=== PATIENT | male | born 1945 | race Caucasian/White ===

== ENCOUNTER 2016-06-17 18:10 | Emergency (ER) | payer MEDICARE, OTHER ==
[2016-06-17] MEDS ORDERED: Ondansetron INJ* 2 MG/ML VIAL IV ONE (19:28)
[2016-06-17] MEDS ORDERED: Morphine INJ* 4 MG/ML 1 ML SYRINGE IV ONE ×2 (19:28→21:44)
[2016-06-17] MEDS ORDERED: NS 0.9% 250 ML* 250 ML IV SCH (20:00)
[2016-06-17 20:14] LABS: Hematocrit 48 % (42-52); Hemoglobin 16.6 g/dl (14.0-18.0); Mean Corpuscular HGB Conc 34 g/dl (31-36); Mean Corpuscular Hemoglobin 32 pg (27-31); Mean Corpuscular Volume 92 fL (80-94); Mean Platelet Volume 8 um3 (7.4-10.4); Red Blood Count 5.24 10^6/ul (4.0-5.4); Red Cell Distribution Width 14 % (10.5-15); White Blood Count 10.1 10^3/ul (3.5-10.8)
[2016-06-17 20:29] LABS: Albumin 4.6 g/dL (3.2-5.2); BUN/Creatinine Ratio 12.2 (8-20); Calcium 10.1 mg/dL (8.6-10.3); EGFR African American 81.1 (>60); EGFR Non-African American 63.1 (>60); Globulin 3.8 g/dL (2-4); Potassium 3.5 mmol/L (3.5-5.0); Total Bilirubin 0.7 mg/dL (0.2-1.0); Total Protein 8.4 g/dL (6.4-8.9)
[2016-06-17] MEDS ORDERED: Iodixanol* (CONTRAST) 320 MG/ML 100 ML SDV IV ONE (20:40)
[2016-06-17 20:57] LABS: Erythrocyte Sed Rate 17 mm/Hr (0-40)
--- NOTE | 2016-06-17 21:09 | RAD ---
INDICATION: Status post chiropractic manipulation 06/15. History of migraine headaches. COMPARISON: CT brain September 28, 2015 TECHNIQUE: Noncontrast axial source images were acquired from the skull base to the vertex. FINDINGS: Ventricles/sulci: The ventricles and cisterns are normal in size and configuration for age. Brain parenchyma: There is no acute focal parenchymal finding, evidence of intracranial mass, or intracranial mass effect. There is an old lacunar type infarct in the left caudate nucleus, unchanged. Intracranial hemorrhage:None. Extra-axial spaces: There are no abnormal extra axial fluid collections or evidence of extra-axial mass. Calvarium: There is no calvarial fracture or other calvarial abnormality. Scalp: There is no evidence of scalp or extracalvarial soft tissue abnormality. Paranasal sinuses/mastoid: The paranasal sinuses and mastoid air cells are clear. Other: None. IMPRESSION: No acute intracranial findings
--- NOTE | 2016-06-17 21:22 | RAD ---
INDICATION: Neck pain. Status post manipulation by a chiropractor 06/15. History of migraines. COMPARISON: CT brain September 28, 2015; CT brain June 17, 2016; CTA head and neck September 28, 2015; MRI brain September 29, 2015 TECHNIQUE: Axial source images were acquired with coronal and sagittal reconstructions. CT angiographic technique was utilized with injection of 80 mL Visipaque 320. FINDINGS: Aortic arch: There are no acute CT angiogram abnormalities of the arch or the great vessels arising from the arch. There is uncoiling of the thoracic aorta with the great vessels are tortuous and ectatic. Right carotid: The internal carotid artery, carotid bifurcation, extracranial portions of the internal carotid artery, carotid artery at the skull base, carotid siphon, and carotid termination appear widely patent. There are mild atherosclerotic changes at the carotid bifurcation. Left carotid:The internal carotid artery, carotid bifurcation, extracranial portions of the internal carotid artery, carotid artery at the skull base, carotid siphon, and carotid termination appear widely patent. There are mild atherosclerotic changes the rounded bifurcation. Right middle and anterior cerebral arteries: There are no CT angiographic abnormalities of the middle or anterior cerebral arteries. Left middle and anterior cerebral arteries: There are no CT angiographic abnormalities of the middle or anterior cerebral arteries Right vertebral: The CT angiographic appearance of the vertebral artery is normal. Left vertebral: The CT angiographic appearance of the vertebral artery is normal. Basilar artery: The basilar artery and basilar tip appear normal. Posterior cerebral arteries: The distal distribution of the right and left posterior cerebral arteries is normal. [place]: The CT angiographic appearance of the [place] is normal. Source images show no evidence of mass or adenopathy within the neck. There are no focal parenchymal abnormalities or abnormal areas of enhancement. There are no acute bony findings. IMPRESSION: NO CT EVIDENCE OF SIGNIFICANT STENOSIS, DISSECTION, ANEURYSM, OR BRANCH OCCLUSION. NO INTERVAL CHANGE. CPT II Codes: 3100F PQRS
[2016-06-17] MEDS ORDERED: Metoclopramide IV* 5 MG/ML 2 ML VIAL IV ONE (21:45)
[2016-06-17] MEDS ORDERED: Ketorolac INJ* 15 MG/ML 1 ML VIAL IV PUSH ONE (23:15)
[2016-06-18] MEDS ORDERED: HYDROcodone/ACETAMIN 5-325 MG* 1 TAB PO ONE (00:30)
[2016-06-18 02:04] VITALS: BP 144/86
--- NOTE | 2016-06-18 07:55 | RAD ---
HISTORY: Headache, migraine, fever COMPARISONS: September 28, 2015 VIEWS: 2: Frontal dual-energy and lateral views of the chest. FINDINGS: CARDIOMEDIASTINAL SILHOUETTE: The cardiomediastinal silhouette is normal. SOCO: The soco are normal. PLEURA: The costophrenic angles are sharp. No pleural abnormalities are noted. LUNG PARENCHYMA: There is hyperinflation with flattening of the diaphragm and expansion of the AP diameter of the chest. ABDOMEN: The upper abdomen is clear. There is no subphrenic gas. BONES AND SOFT TISSUES: There is diffuse osteopenia. Degenerative changes are noted along the spine OTHER: None. IMPRESSION: HYPERINFLATION, CONSISTENT WITH COPD. NO ACTIVE CARDIOPULMONARY DISEASE.
--- NOTE | 2016-06-23 22:03 | ED ---
Edwin, DoctorNasrin, scribed for Myra Loco MD on 06/17/16 at 1916 . Headache - HPI Summary HPI Summary: 70 year old male arrived to [facility] c/o headache, neck pain, nausea, and vomiting beginning two days ago. He describes the BLAS as starting in the middle of the forehead, and shooting to the right or left side of the head; he rates his pain as fluctuating between a 7/10 and 10/10. He also is experiencing photophobia. His pain began two nights ago, a few hours after visiting the chiropractor. He has been taking regular migraine medication (Butalbital) and OTC meds for nausea , but his symptoms have not alleviated. He has a PMHx of migraines, although his current pain is more severe and more persistent than previous episodes. He additionally has a PMHx of TIA. He regularly sees Dr. Dayton Stovall ([facility] ) who recommended pt come to ED. - History Of Current Complaint Chief Complaint: EDHeadache Stated Complaint: MIGRAINE Time Seen by Provider: 06/17/16 19:10 Hx Obtained From: Patient Onset/Duration: Gradual Onset, Started days ago Initially Headache Was: Moderate Currently Pain Is: Current Pain Scale(0-10)= - 8/10 Timing: Constant Character: Dull Location of Headache: Frontal Aggravating Factor: Bright Lights Allevating Factors: Nothing Associated Signs And Symptoms: Nausea, Vomiting, Neck Pain - Risk Factors SAH Risk Factors: Negative Meningitis Risk Factors: Negative SDH Risk Factors: Male Temporal Arteritis Risk Factors: Greater Than 60 Years Old - Allergies/Home Medications Allergies/Adverse Reactions: Allergies Allergy/AdvReac Type Severity Reaction Status Date / Time Atorvastatin Allergy Unknown Verified 06/17/16 18:45 Reaction Details Codeine Allergy See Comment Verified 06/17/16 18:45 Lisinopril Allergy Unknown Verified 06/17/16 18:45 Reaction Details Sucralfate [From Carafate] Allergy Unknown Verified 06/17/16 18:45 Reaction Details PMH/Surg Hx/FS Hx/Imm Hx Previously Healthy: No Endocrine/Hematology History: Reports: Hx Diabetes - type II Cardiovascular History: Reports: Hx Hypercholesterolemia, Hx Hypertension Denies: Hx Pacemaker/ICD Sensory History: Reports: Hx Contacts or Glasses, Hx Hearing Aid, Hx Hearing Problem Opthamlomology History: Reports: Hx Contacts or Glasses Neurological History: Reports: Hx Migraine Psychiatric History: Denies: Hx Panic Disorder - Cancer History Cancer Type, Location and Year: Skin cancer - Surgical History Surgery Procedure, Year, and Place: Bilateral trigger finger surgery. bilateral cateract surgery. skin cancer removal x2 Infectious Disease History: No Infectious Disease History: Denies: Traveled Outside the [place] in Last 30 Days - Family History Known Family History: Positive: Hypertension - Social History Occupation: Retired Lives: With Family Alcohol Use: Occasionally Alcohol Amount: 3 drinks per week Substance Use Type: Reports: None Smoking Status (MU): Former Smoker Review of Systems Negative: Fever Positive: Photophobia Cardiovascular: Negative Respiratory: Negative Positive: Vomiting, Nausea Positive: Headache Psychological: Normal All Other Systems Reviewed And Are Negative: Yes Physical Exam Triage Information Reviewed: Yes Vital Signs On Initial Exam: Initial Vitals Temp Pulse Resp BP Pulse Ox 99.1 F 82 16 145/81 99 06/17/16 18:12 06/17/16 18:12 06/17/16 18:12 06/17/16 18:12 06/17/16 18:12 Vital Signs Reviewed: Yes Appearance: Positive: Well-Appearing, Well-Nourished, Pain Distress Skin: Positive: Warm, Skin Color Reflects Adequate Perfusion, Dry Eyes: Positive: EOMI, PAULA, Conjunctiva Clear, Other: - fundi discs sharp and flat, no hemorrhage ENT: Positive: Normal ENT inspection Neck: Positive: Supple, Other: - pain at posterior cervical spine, radiates to the right trapezius Respiratory/Lung Sounds: Positive: Clear to Auscultation, Breath Sounds Present. Negative: Rales, Rhonchi, Wheezes Cardiovascular: Positive: RRR, Pulses are Symmetrical in both Upper and Lower Extremities. Negative: Murmur, Rub Abdomen Description: Positive: Nontender, No Organomegaly, Soft. Negative: Distended, Guarding, Hepatomegaly, Peritoneal Signs, Pulsatile Mass, Splenomegaly Bowel Sounds: Positive: Present Musculoskeletal: Positive: Strength/ROM Intact Neurological: Positive: Sensory/Motor Intact, Alert, Oriented to Person Place, Time, CN Intact II-III, Normal Gait, Other - Motor function 5/5, Sensations intact. Negative: Facial Droop, Focal Deficit @, Slurred Speech Psychiatric: Positive: Normal - Princess Coma Scale Coma Scale Total: 15 Diagnostics - Vital Signs Vital Signs Temp Pulse Resp BP Pulse Ox 06/17/16 18:44 65 98 06/17/16 18:42 164/88 06/17/16 18:41 98.8 F 64 18 164/88 98 06/17/16 18:12 99.1 F 82 16 145/81 99 - Laboratory Lab Results: Lab Results 06/17/16 06/17/16 06/17/16 Range/Units 20:00 20:00 20:00 WBC 10.1 (3.5-10.8) 10^3/ul RBC 5.24 (4.0-5.4) 10^6/ul Hgb 16.6 (14.0-18.0) g/dl Hct 48 (42-52) % MCV 92 (80-94) fL MCH 32 H (27-31) pg MCHC 34 (31-36) g/dl RDW 14 (10.5-15) % Plt Count 199 (150-450) 10^3/ul MPV 8 (7.4-10.4) um3 Neut % (Auto) 69.2 (38-83) % Lymph % (Auto) 20.8 L (25-47) % Upton % (Auto) 9.1 H (1-9) % Eos % (Auto) 0.4 (0-6) % Baso % (Auto) 0.5 (0-2) % Absolute Neuts (auto) 7.0 (1.5-7.7) 10^3/ul Absolute Lymphs (auto) 2.1 (1.0-4.8) 10^3/ul Absolute Monos (auto) 0.9 H (0-0.8) 10^3/ul Absolute Eos (auto) 0 (0-0.6) 10^3/ul Absolute Basos (auto) 0.1 (0-0.2) 10^3/ul Absolute Nucleated RBC 0 10^3/ul Nucleated RBC % 0 ESR 17 (0-40) mm/Hr INR (Anticoag Therapy) 0.94 (0.89-1.11) APTT 21.2 L (26.0-36.3) seconds Sodium 135 (133-145) mmol/L Potassium 3.5 (3.5-5.0) mmol/L Chloride 97 L (101-111) mmol/L Carbon Dioxide 28 (22-32) mmol/L Anion Gap 10 (2-11) mmol/L BUN 14 (6-24) mg/dL Creatinine 1.15 (0.67-1.17) mg/dL Est GFR ( Amer) 81.1 (>60) Est GFR (Non-Af Amer) 63.1 (>60) BUN/Creatinine Ratio 12.2 (8-20) Glucose 125 H (70-100) mg/dL Calcium 10.1 (8.6-10.3) mg/dL Total Bilirubin 0.70 (0.2-1.0) mg/dL AST 15 (13-39) U/L ALT 13 (7-52) U/L Alkaline Phosphatase 85 (34-104) U/L Total Protein 8.4 (6.4-8.9) g/dL Albumin 4.6 (3.2-5.2) g/dL Globulin 3.8 (2-4) g/dL Albumin/Globulin Ratio 1.2 (1-3) Influenza A (Rapid) (Negative) Influenza B (Rapid) (Negative) 06/17/16 Range/Units 23:47 WBC (3.5-10.8) 10^3/ul RBC (4.0-5.4) 10^6/ul Hgb (14.0-18.0) g/dl Hct (42-52) % MCV (80-94) fL MCH (27-31) pg MCHC (31-36) g/dl RDW (10.5-15) % Plt Count (150-450) 10^3/ul MPV (7.4-10.4) um3 Neut % (Auto) (38-83) % Lymph % (Auto) (25-47) % Upton % (Auto) (1-9) % Eos % (Auto) (0-6) % Baso % (Auto) (0-2) % Absolute Neuts (auto) (1.5-7.7) 10^3/ul Absolute Lymphs (auto) (1.0-4.8) 10^3/ul Absolute Monos (auto) (0-0.8) 10^3/ul Absolute Eos (auto) (0-0.6) 10^3/ul Absolute Basos (auto) (0-0.2) 10^3/ul Absolute Nucleated RBC 10^3/ul Nucleated RBC % ESR (0-40) mm/Hr INR (Anticoag Therapy) (0.89-1.11) APTT (26.0-36.3) seconds Sodium (133-145) mmol/L Potassium (3.5-5.0) mmol/L Chloride (101-111) mmol/L Carbon Dioxide (22-32) mmol/L Anion Gap (2-11) mmol/L BUN (6-24) mg/dL Creatinine (0.67-1.17) mg/dL Est GFR ( Amer) (>60) Est GFR (Non-Af Amer) (>60) BUN/Creatinine Ratio (8-20) Glucose (70-100) mg/dL Calcium (8.6-10.3) mg/dL Total Bilirubin (0.2-1.0) mg/dL AST (13-39) U/L ALT (7-52) U/L Alkaline Phosphatase (34-104) U/L Total Protein (6.4-8.9) g/dL Albumin (3.2-5.2) g/dL Globulin (2-4) g/dL Albumin/Globulin Ratio (1-3) Influenza A (Rapid) Negative (Negative) Influenza B (Rapid) Negative (Negative) Result Diagrams: 06/17/16 20:00 06/17/16 20:00 Lab Statement: Any lab studies that have been ordered have been reviewed, and results considered in the medical decision making process. - Radiology CXR Radiology Interpretation Completed By: ED Physician - No acute disease - CT Brain CT CT Interpretation Completed By: Radiologist - IMPRESSION: No acute intracranial findings Head CTA CT Interpretation Completed By: Radiologist - IMPRESSION: NO CT EVIDENCE OF SIGNIFICANT STENOSIS, DISSECTION, ANEURYSM, OR BRANCH OCCLUSION. NO INTERVAL CHANGE. Re-Evaluation - Re-Evaluation First Eval Re-Evaluation Time: 00:19 Change: Unchanged Comment: Informed pt of CT results (negative). Informed pt that he will be able to be discharged as soon as he is comfortable; pending flu swab. Pt has thrown up a few times and feels that his mouth is dry, but his BLAS is slightly better. He does not have any CP, SOB, cough. His lungs are clear, stomach soft. BP currently 155/87, HR 101 bpm, O2 sat around 89%. Will order CXR due to wavering O2 sat. Second Eval Re-Evaluation Time: 04:30 - headache is better though not completely gone. Change: Improved Headache Course/Dx - Diagnoses Differential Diagnosis/HQI/PQRI: Migraine, Sinus Headache, Subarachnoid Hemorrhage, Viral Syndrome Provider Diagnoses: Acute headache, Vomiting alone Discharge - Discharge Plan Condition: Stable Disposition: HOME Prescriptions: Ondansetron ODT TAB* [Zofran 4 MG Odt TAB*] 4 mg PO Q8H PRN #15 tab.odt PRN Reason: Nausea Patient Education Materials: Migraine Headache (ED), Acute Headache (ED) Referrals: Dayton Stovall MD [Primary Care Provider] - 2 Days Sher Horton MD [Medical Doctor] - As Soon As Possible Additional Instructions: You were morphine a total of 8 mg and one hydrocodone tab for pain, and zofran 8mg and metoclopramide 10mg IV for nausea. Your flu test was negative. Your chest xray was negative, read by the ER doctor only. This reading may change when the radiologist reviews this. Your CT brain and your CT neck with IV contrast did not show any stroke or abnormalities. You may take your blood pressure medication when you get home. There is a prescription for zofran for nausea at the [facility] on [address]. The documentation as recorded by the Doctor milligan Tahera accurately reflects the service I personally performed and the decisions made by me, Myra Loco MD.
== END 2016-06-18 02:15 | disposition home or self-care (01) ==
LOC: ED 18:10
DX: R51 Headache (principal); M54.2 Cervicalgia; R11.2 Nausea with vomiting, unspecified; Z87.891 Personal history of nicotine dependence
CPT/HCPCS: 36415; 70450; 70496; 70498; 71020; 80053; 85025; 85610; 85652; 85730; 87502; 96374; 96375; 99284; J1885; J2270; J2405; Q9967

== ENCOUNTER 2016-06-19 11:45 | Inpatient (IN) | payer MEDICARE, OTHER ==
[2016-06-19] MEDS: Metoprolol Tartrate IV* 1 MG/ML 5 ML VIAL IV PRN ×2 (16:22→22:37)
[2016-06-19] MEDS: Acetaminophen TAB* 325 MG PO PRN ×2 (16:22→21:08)
[2016-06-19] MEDS ORDERED: Metoclopramide IV* 5 MG/ML 2 ML VIAL IV ONE (16:30)
[2016-06-19] MEDS ORDERED: Dihydroergotamine (D.H.E.)* 1 MG/ML 1 ML AMP IV SLOW PU ONE (16:30)
[2016-06-19 16:35] LABS: Albumin 4.1 g/dL (3.2-5.2); BUN/Creatinine Ratio 17.1 (8-20); Calcium 9.3 mg/dL (8.6-10.3); Direct Bilirubin 0.2 mg/dL (0.03-0.18); EGFR African American 90.1 (>60); Globulin 3.4 g/dL (2-4); Indirect Bilirubin 0.6 mg/dL (0.3-1.0); Potassium 3.4 mmol/L (3.5-5.0); Total Bilirubin 0.8 mg/dL (0.2-1.0); Total Protein 7.5 g/dL (6.4-8.9)
[2016-06-19 16:51] LABS: Hematocrit 42 % (42-52); Hemoglobin 14.6 g/dl (14.0-18.0); Mean Corpuscular HGB Conc 35 g/dl (31-36); Mean Corpuscular Hemoglobin 31 pg (27-31); Mean Corpuscular Volume 91 fL (80-94); Mean Platelet Volume 8 um3 (7.4-10.4); Red Blood Count 4.66 10^6/ul (4.0-5.4); Red Cell Distribution Width 14 % (10.5-15); White Blood Count 9.8 10^3/ul (3.5-10.8)
[2016-06-19] MEDS: Magnesium Sulfate 2 GM IV* 2 GM/50 ML BAG IVPB SCH (17:50)
[2016-06-19] MEDS: Ketorolac INJ* 15 MG/ML 1 ML VIAL IV PUSH PRN (17:50)
[2016-06-19] MEDS: Metoclopramide IV* 5 MG/ML 2 ML VIAL IV PRN (17:50)
[2016-06-19] MEDS: Heparin VIAL(*) 5000 UNITS/ML VIAL (FIVE THOUSAND) SUBCUT SCH (21:08)
--- NOTE | 2016-06-19 22:15 | HP ---
ADMITTING HISTORY AND PHYSICAL: DATE OF ADMISSION: 06/19/16 PRESENTING COMPLAINT: Headache, nausea, and vomiting for 5 days. HISTORY OF PRESENT ILLNESS: Vladimir Rock is a 70-year-old left-handed white male. He has had a history in the past of migraines. On Wednesday of this week, today is Wednesday, in the evening, he developed a spontaneous onset of headache. He had been to his chiropractor who had worked on his neck earlier in the evening. He has not taken any of his usual medications since Wednesday. He thought this was a migraine kind of coming on. He took Fioricet, went to bed, woke up many times in the night for headache and vomiting. He stayed in bed all Wednesday, went to the emergency room on Wednesday as he had neck pain. He was evaluated in the emergency room and had extensive testing. He had a CTA of his brain, which showed no significant stenosis, dissection, aneurysmal branch occlusion. He had a brain CT, showed no acute intracranial abnormality. He had a chest x-ray, hyperinflation consistent with COPD, nothing acute. Lab work , CBC, white count 10.1, hemoglobin 16.6, hematocrit 48, platelets 199 with normal diff. INR of 0.94, APTT 21.2. Chemistry profile within normal limits aside from a chloride of 97, glucose of 125. His C- reactive protein was not measured. They gave him a trial of IV morphine, made no difference, IV ondansetron (Zofran ) did not help either. He was sent home having been told that he likely had a viral syndrome. He has had continued bed rest with nausea and vomiting, photophobia, phonophobia since, slight neck stiffness, temperature T-max was a 100.2 Fahrenheit. He came to my office as nothing was improving. He states that in my office, his current headache was 8/10 and it was bifrontal. He has not taken any medications since Wednesday. PREVIOUS MEDICAL HISTORY: Migraine, type 2 diabetes without complication, hyperlipidemia, GERD, hearing loss. PREVIOUS SURGICAL HISTORY: Both thumbs trigger release, basal cell carcinoma. HOSPITALIZATIONS: On 10/19/15, he had 2 transient ischemic attacks, hypertension. A CT scan showed bilateral lacunar infarct in the caudate nuclei. MEDICATIONS: Usual medications: 1. Amlodipine 10 mg daily. 2. He takes atorvastatin 40 mg q.h.s. 3. Butalbital/acetaminophen/caffeine 50/300/40 one to two pills as needed for headaches every 4 hours. 4. Clopidogrel 75 mg daily. 5. Fexofenadine 180 mg daily as needed for allergy. 6. Glucosamine chondroitin 1 tablet a day. 7. Magnesium oxide 400 mg a day. 8. Metoprolol ER 25 mg a day. 9. Multivitamin 1 a day. 10. [place]-3 fatty acid 1 g daily. 11. Vitamin B complex 1 a day. ALLERGIES: He has myalgias with STATIN, CODEINE, LISINOPRIL cause anaphylaxis, SUCRALFATE nausea, DYAZIDE myalgias. FAMILY HISTORY: Brother with hypertension, mother had a myocardial infarction, 3 brothers had CABG, type 2 diabetes mellitus. He has extensive family history of diabetes. Brother had metastasis to his liver. SOCIAL HISTORY: He is a former smoker. Drinks alcohol socially. with 2 children. REVIEW OF SYSTEMS: A 12-system review, he has had a fever, night sweats, nausea and vomiting, some muscle aches and dizziness. Other systems are negative. PHYSICAL EXAMINATION GENERAL: He had no cyanosis, anemia, jaundice, clubbing, or lymphadenopathy. He was lying in pain on the examination table. He had photophobia. He had ____ _. He had no cyanosis, anemia, jaundice, clubbing or lymphadenopathy. VITAL SIGNS: 6 feet, 200 pounds, BMI 27.1, his blood pressure is 190/114, temperature 100.2, pulse 72, oxygen saturation 97% on room air. RESPIRATORY: Chest expansion is full and symmetrical. Percussion note resonant. Breath sounds vesicular. No crackles or wheezes. CARDIOVASCULAR: Pulse was regular, normal character and volume. Venous pressure not elevated. [place] beat not displaced. Heart sounds normal. No added sounds, murmurs. No pedal edema. Pedal pulses present. No carotid bruits. ABDOMEN: No distention, masses, tenderness or organomegaly. Bowel sounds are present. NERVOUS SYSTEM: He has conjugate eye movements. Visual kang are full with confrontations. PERRLA. Fundi were fair without papilledema. Cranial nerves II through XII intact. Normal speech. Arms and Legs: Full power. Normal tone and coordination. Mhttmg-jm-zent test was normal. Reflexes were bilaterally present and symmetrical. Plantar responses downgoing. He had no skin rashes. ASSESSMENT AND PLAN: 1. Headache, nausea and vomiting. I think this is status migrainosus. He has had one previous admission for this. I am admitting him as an observation patient and I am going to give him a protocol to administer dihydroergotamine IV having being covered by metoclopramide. I have spoken with Dr. Halley Crockett, who is going to do a neurological consultation and will make further suggestions. I have written for further metoclopramide. I have withheld any opiates at present as he had no luck with those in the emergency room. 2. Accelerated hypertension. It is unclear whether this is due to the fact that he has not taken any medications in a week or due to reactive to the pain. I have given him metoprolol 5 mg IV to see whether this controls the blood pressure and we will follow empirically. 3. Dehydration. He has not been eating or drinking properly. I will check his CMP and a CBC. I will give him lactated Ringer's at 75 cc an hour and we will increase the rate of this should he has a high BUN to creatinine ratio. 4. Hypercholesterolemia. We will hold his medication at the present time. 5. Gastroesophageal reflux disease, this is stable. 6. Transient ischemic attack. He has a history of cerebrovascular disease. We will have to restart his antiplatelet agents as soon as he is able to eat and drink. 7. Type 2 diabetes mellitus. This is usually managed by diet and exercise and is not especially exacerbated. 8. Bilateral hearing loss, this is long- standing. 9. DVT prophylaxis. He will have subcutaneous heparin and DICK stockings 10. Code status, he wishes to be full code. CC: Halley Crockett MD, Neurology* [id number]/CPS #: [id number] MTDD
--- NOTE | 2016-06-20 01:01 | CONS ---
NEUROLOGY CONSULTATION: DATE OF CONSULT: 06/19/16 LOCATION: The patient is an inpatient. REQUESTING PHYSICIAN: Dayton Stovall MD. REASON FOR CONSULT: Status migrainosus. HISTORY OF PRESENT ILLNESS: Vladimir Rock is a 70-year-old man with a history of hypertension and TIA last year who also has a history of migraine headaches and was directly admitted for treatment of 5 days of intractable migraines. The patient reports that his headache began on Wednesday and has been daily since then. It is severe in nature located in the bitemporal regions. It is associated with photophobia as well as nausea and vomiting. He has been using Fioricet for treatment of his headache and indicates that he has been taking it approximately 3 times per day on a daily basis over the last 5 days. Prior to this, he indicates that he had frequent headaches over the last 6 months and has been using Fioricet approximately once a day on average 4 times per week. He had a similar episode of intractable headache about 17 years ago and reports that he had an extensive workup at that time, which included a lumbar puncture and the workup was normal. He presented to the emergency department yesterday for treatment of this headache and Dr. Stovall indicated to me that he was given morphine and some Zofran without significant benefit, but in my review of the records from that ER visit, it looks like he was given [place] and some fluids. In any case, the patient reports he did not get any relief of his headache and presented to Dr. Stovall's office today and was directly admitted. The patient denies any changes in his language or vision with this headache. He has had no weakness or numbness of his extremities. He visited the chiropractor on Wednesday which he does routinely and developed this headache after the fact. During his ER visit yesterday, he underwent CT of the brain as well as CT angiogram of the head and neck which did not show any acute abnormalities. Dr. Stovall admitted him with the plan to give him DHE and requested Neurology's assistance with management of his intractable migraines. PAST MEDICAL HISTORY: 1. Migraine. 2. Hypertension. 3. Hypercholesterolemia. 4. TIA x2 in August of last year. The patient reports his symptoms involved left - sided weakness. FAMILY HISTORY: The patient is unaware of any other family members with migraine. His mom from a massive heart attack at the age of 54. Father of prostate cancer. SOCIAL HISTORY: He is . REVIEW OF SYSTEMS: The patient denies any recent runny nose, congestion, sneezing. He does have neck pain which started on Wednesday in conjunction with the headache. He has also had some low-grade fevers, but nothing greater than 100.2. PHYSICAL EXAM: Vital Signs: Temperature 99.1, blood pressure was 206/94 prior to him receiving 5 mg of IV metoprolol after which it came down to 177/95, heart rate 72, and oxygen saturation 95% on room air. On general examination, he is in mild distress sitting in his hospital bed. His heart is in a regular rate and rhythm with no murmurs, rubs, or gallops. Lungs are clear to auscultation bilaterally. Carotids reveal no bruits. On neurologic examination , he is fully awake, alert, and oriented. His speech is fluent without dysarthria or aphasia. Pupils are equal, round, reactive from 4 to 2 mm bilaterally. Versions are full without nystagmus. Visual kang are full to confrontation. Facial sensation and musculature is full and symmetric. Hearing is intact to finger rub. The palate elevates symmetrically and the tongue is midline. He has normal strength in the upper and lower extremities with no pronator drift. Sensation is intact to light touch. Reafts-ql-[id number] is intact without ataxia. Reflexes are 2+ in the upper and lower extremities with downgoing toes. He was not ambulated at this time. DIAGNOSTIC STUDIES/LAB DATA: CBC showed a normal white blood cell count, but differential shows 8.7 lymphocyte percentage, 9.7% monocytes, absolute neutrophils of 8, absolute lymphocytes of 0.9, and absolute monocytes of 0.9. Chemistry panel shows potassium 3.4, chloride 95, glucose 153, and direct bilirubin of 0.2. His CT of the brain was personally reviewed and shows lacunar infarction that appears old in the left caudate. CT angiogram of the head and neck performed yesterday was also personally reviewed and shows no evidence of dissection or venous sinus thrombosis. IMPRESSION: A 70-year-old man with a history of migraine headaches admitted with intractable migraine over 5 days. There is likely a contribution of rebound headache from overuse of Fioricet here. I worry about using DHE in a patient of his age as well as with his history of transient ischemic attack and with his history of hypertension which is currently not well controlled due to him not taking his antihypertensives or any of his other medications this week because of his nausea and vomiting. Instead, I would suggest starting with Toradol IV and I ordered 15 mg q.6 hours p.r.n. as well as 2 g of magnesium to be given b.i.d. If this fails to control his headaches, then one could consider a Depakote load. In addition, controlling his blood pressure may also help his headaches and he is currently ordered for 5 mg of metoprolol q.6 hours p.r.n., but I discussed with the nurse that she may want to call Dr. Carter and see if she wishes to add another medication at this time. If these measures fail to control the headache and the blood pressure comes under better control, then consideration could be given to using DHE in this patient, but I would defer that to Dr. Schmitt who will [facility] and has received sign-out on the patient. Thank you for this consultation. [id number]/[facility] #: [id number] JOMAR
[2016-06-20] MEDS ORDERED: Al Hydrox/Mg Hydrox/Simet LIQ* 30 ML UDC PO PRN (01:24)
[2016-06-20] MEDS: Ketorolac INJ* 15 MG/ML 1 ML VIAL IV PUSH PRN ×3 (02:57→23:35)
[2016-06-20] MEDS: Metoclopramide IV* 5 MG/ML 2 ML VIAL IV PRN ×2 (02:57→12:24)
[2016-06-20] MEDS: Metoprolol Tartrate IV* 1 MG/ML 5 ML VIAL IV PRN ×3 (04:22→23:34)
[2016-06-20] MEDS: Magnesium Sulfate 2 GM IV* 2 GM/50 ML BAG IVPB SCH ×2 (05:38→17:52)
[2016-06-20] MEDS: Heparin VIAL(*) 5000 UNITS/ML VIAL (FIVE THOUSAND) SUBCUT SCH ×4 (05:38→22:10)
[2016-06-20] MEDS ORDERED: Metoprolol Succinate XL TAB* 25 MG PO SCH (09:00)
[2016-06-20] MEDS: Omeprazole CAP* 20 MG PO SCH (09:56)
[2016-06-20] MEDS: amLODIPine TAB* 5 MG PO SCH (09:56)
[2016-06-20] MEDS ORDERED: LORazepam TAB(*) 0.5 MG PO PRN (13:39)
[2016-06-20] MEDS: Metoprolol Tartrate TAB* 50 mg PO SCH ×2 (15:53→16:34)
[2016-06-20] MEDS ORDERED: LORazepam INJ* 2 MG/ML 1 ML VIAL ONE (16:18)
[2016-06-20] MEDS ORDERED: Meperidine SYRINGE* 50 MG/ML ONE (16:36)
[2016-06-20] MEDS ORDERED: Midazolam* 1 MG/ML 2 ML VIAL (2 MG) ONE ×2 (16:36)
[2016-06-20] MEDS ORDERED: HYDROmorphone* 1 MG/ML 1 ML SYR ONE (16:36)
[2016-06-20] MEDS ORDERED: fentaNYL* 50 MCG/ML 2 ML VIAL (100 MCG VIAL) ONE (16:37)
--- NOTE | 2016-06-20 16:39 | RAD ---
Indication: Stroke. CT of the brain was performed without IV contrast. Ventricular structures are midline. No midline shift is noted. The extra-axial spaces are unremarkable. There is no evidence of intracranial mass or hemorrhage. No other high or low density lesions are identified. Mastoid air cells and paranasal sinuses are otherwise unremarkable. No changes noted since June 17, 2016. IMPRESSION: No intracranial mass or hemorrhage is noted.
[2016-06-20] MEDS ORDERED: LORazepam INJ* 2 MG/ML 1 ML VIAL IV PUSH PRN (16:44)
[2016-06-20 17:22] LABS: CSF Glucose 86 mg/dL (40-70)
[2016-06-20 18:05] LABS: Hematocrit 42 % (42-52); Hemoglobin 14.7 g/dl (14.0-18.0); Mean Corpuscular HGB Conc 35 g/dl (31-36); Mean Corpuscular Hemoglobin 32 pg (27-31); Mean Corpuscular Volume 91 fL (80-94); Mean Platelet Volume 8 um3 (7.4-10.4); Red Blood Count 4.62 10^6/ul (4.0-5.4); Red Cell Distribution Width 13 % (10.5-15); White Blood Count 9.9 10^3/ul (3.5-10.8)
[2016-06-20 18:19] LABS: BUN/Creatinine Ratio 21.1 (8-20); Calcium 8.8 mg/dL (8.6-10.3); EGFR African American 101.1 (>60); EGFR Non-African American 78.6 (>60); Globulin 3.3 g/dL (2-4); Potassium 2.8 mmol/L (3.5-5.0); Total Bilirubin 0.7 mg/dL (0.2-1.0); Total Protein 7.3 g/dL (6.4-8.9)
[2016-06-20 18:41] LABS: Body Fluid Appearance Clear
[2016-06-20 18:52] LABS: BF RBC Count #1 2; BF RBC Count #2 3; BF WBC Count #1 124; BF WBC Count #2 170; RBC counts within 6%? Yes; WBC counts within 15%? Yes
[2016-06-20 18:55] LABS: Body Fluid Total Cells Counted 100
[2016-06-20 18:57] LABS: Body Fluid WBC 147 /mcL
[2016-06-20] MEDS ORDERED: Vancomycin per Pharmacy* NOTE FOLLOW UP PRN (19:24)
[2016-06-20] MEDS: NS 0.9% IVPB SCH (19:43)
[2016-06-20] MEDS: ACYCLOVIR IVPB SCH (19:43)
[2016-06-20] MEDS ORDERED: Vancomycin(*) 1,500 MG in NS 0.9% 250 ML* 250 ML IVPB ONE (21:00)
--- NOTE | 2016-06-21 00:33 | PN ---
ADDENDUM INCLUDED ON THIS REPORT NEUROLOGICAL FOLLOWUP: DATE OF VISIT: 06/20/16 - ROOM #405 PATIENT OF: Dr. Carter. HISTORY OF PRESENT ILLNESS: This is a neurological followup. I am seeing Mr. Rock for the first time today. He is a 70-year-old man who has had a 6-day history of intractable headaches and Dr. Crockett saw him and it was concerning that there might have been a component of rebound headache from Fioricet withdrawal as well as hypertensive headaches. Dr. Stovall had documented a T-max of 100.2 and slight neck stiffness. One of the nurses had documented some slurred speech apparently yesterday. According to today's nurse's notes that she has spoken to him without his dentures and he is hard of hearing, but he seemed to comprehend and speak better than a few hours ago, perhaps 2 or 3 hours ago, better than he is doing now. The , who I have just spoken to says that when she left at about 2 or so, he was acting somewhat confused, but is acting more confused currently. She was unclear when this actually began. MEDICATIONS: Include: 1. Maalox. 2. Norvasc 10 mg daily. 3. Toradol 50 mg IV q.6 hours. 4. Lorazepam 0.5 mg p.r.n., which has not been given yet. 5. Magnesium sulfate 2 g IV. 6. Metoclopramide 10 mg IV q.6 hours. 7. Metoprolol 5 mg p.r.n. blood pressure. 8. Metoprolol 50 mg q.12 hours. 9. Prilosec 20 mg daily. 10. Compazine injections. PHYSICAL EXAMINATION: Temperature 100.7, pulse 62, respiratory rate 18, blood pressure 158/75. He was sleeping, but would arouse and appears somewhat agitated. He would say words and sentences such as where am I, but he did not know his age, his name, his . He appeared globally confused. Cranial nerves II through XII were intact. I could not look in his fundi because he was agitated. He had his dentures out, but his mouth appeared symmetric and unchanged according to the nurse. He had moved all extremities with 5/5 power and toes were downgoing. Neck was hard to assess because of his agitation. Chest is clear. Cardiovascular: Regular rate and rhythm. Abdomen: Soft. Positive bowel sounds. DIAGNOSTIC STUDIES/LABORATORY DATA: He had a CT scan and a CTA on , which was unremarkable. He had labs on hospital days including CMP and CBC, which did not reflect any clear pathology. His glucose was 153 at that time. IMPRESSION: Mr. Rock is a hard person to assess. He appears to have perhaps had fluctuating neurological symptoms having some slurred speech in the past and some gradually worsening confusion today without clear onset, but at least going back a few hours and this is gradually worsening rather than a sudden worsening with borderline fever and with global apparent confusion. I am concerned that this could be a low-grade meningoencephalitis rather than a stroke. If this is ischemic, it is also unclear given the fluctuating reports when this actually began. I think the safest thing to do would be we are getting an emergent CT scan and then getting a spinal tap to follow. We are sending off further blood work including ammonia, INR. We will also get urine testing. I have spoken to Dr. Hardy from Anesthesiology who will be doing a spinal tap. We are getting cryptococcal antigen and herpes PCR as well. Thank you for sharing his case. PROGRESS NOTE ADDENDUM: DATE OF VISIT: 06/20/16 I have spoken further to his . She notes that his speech was a little slurred at the end of last night and he appeared perhaps a little confused then , but she is not sure. She says that he was confused since she has been here this morning and that has gotten worse. She had gone away for a little while and it was significantly worse when she came back, but it has been present for at least 5 or more hours. She also notes that his face without the dentures looks unchanged. She also notes that there has been no unusual exposures to pets or travel or rashes or anything significant like that. [id number]/CPS #: [id number]- [id number]/CPS #: [id number] JOMAR
--- NOTE | 2016-06-21 00:42 | PN ---
PROGRESS NOTE: ADDENDUM: DATE OF VISIT: 06/20/16 I have spoken further to his . She notes that his speech was a little slurred at the end of last night and he appeared perhaps a little confused then , but she is not sure. She says that he was confused since she has been here this morning and that has gotten worse. She had gone away for a little while and it was significantly worse when she came back, but it has been present for at least 5 or more hours. She also notes that his face without the dentures looks unchanged. She also notes that there has been no unusual exposures to pets or travel or rashes or anything significant like that. [id number]/[facility] #: [id number] JOMAR
[2016-06-21] MEDS: Metoprolol Tartrate TAB* 50 mg PO SCH ×2 (01:37→13:26)
[2016-06-21] MEDS: PROCHLORPERAZINE INJ 5 MG/ML 2 ML VIAL IV PRN (03:32)
[2016-06-21] MEDS: NS 0.9% IVPB SCH ×3 (03:38→22:04)
[2016-06-21] MEDS: ACYCLOVIR IVPB SCH ×3 (03:38→22:04)
[2016-06-21] MEDS: Heparin VIAL(*) 5000 UNITS/ML VIAL (FIVE THOUSAND) SUBCUT SCH ×3 (04:56→20:30)
[2016-06-21] MEDS: Vancomycin(*) 1,000 MG in NS 0.9% 250 ML* 250 ML IVPB SCH ×3 (04:56→23:30)
[2016-06-21] MEDS: Magnesium Sulfate 2 GM IV* 2 GM/50 ML BAG IVPB SCH ×2 (06:52→18:08)
[2016-06-21 08:09] LABS: Hematocrit 42 % (42-52); Hemoglobin 14.7 g/dl (14.0-18.0); Mean Corpuscular HGB Conc 35 g/dl (31-36); Mean Corpuscular Hemoglobin 32 pg (27-31); Mean Corpuscular Volume 91 fL (80-94); Mean Platelet Volume 8 um3 (7.4-10.4); Red Blood Count 4.61 10^6/ul (4.0-5.4); Red Cell Distribution Width 14 % (10.5-15); White Blood Count 10.5 10^3/ul (3.5-10.8)
[2016-06-21 08:19] LABS: BUN/Creatinine Ratio 24.7 (8-20); C Reactive Protein 9.56 mg/L (< 5.00); Calcium 8.6 mg/dL (8.6-10.3); EGFR African American 114.9 (>60); EGFR Non-African American 89.4 (>60); Potassium 2.8 mmol/L (3.5-5.0)
[2016-06-21] MEDS: amLODIPine TAB* 5 MG PO SCH (09:00)
[2016-06-21] MEDS: Omeprazole CAP* 20 MG PO SCH (09:01)
[2016-06-21] MEDS: Ketorolac INJ* 15 MG/ML 1 ML VIAL IV PUSH PRN (09:01)
[2016-06-21 09:34] LABS: Urine Bacteria Absent (Absent); Urine Bilirubin Negative (Negative); Urine Glucose 1+(50 mg/dL) (Negative); Urine Nitrite Negative (Negative)
[2016-06-21] MEDS ORDERED: oxyCODONE TAB* 5 MG TAB PO PRN (12:57)
[2016-06-21] MEDS: Butalb/Acetamin/Caff TAB* 1 TAB PO PRN ×2 (13:26→20:26)
[2016-06-21] MEDS: Potassium Chlor TAB* 20 MEQ TAB.ER PO SCH ×3 (13:27→20:29)
[2016-06-21] MEDS ORDERED: Meperidine SYRINGE* 50 MG/ML ONE (16:42)
[2016-06-21] MEDS ORDERED: HYDROmorphone* 1 MG/ML 1 ML SYR ONE (16:42)
[2016-06-21] MEDS ORDERED: fentaNYL* 50 MCG/ML 2 ML VIAL (100 MCG VIAL) ONE (16:42)
[2016-06-22] MEDS: Metoprolol Tartrate TAB* 50 mg PO SCH ×2 (02:18→13:39)
[2016-06-22] MEDS: NS 0.9% IVPB SCH ×3 (04:54→20:22)
[2016-06-22] MEDS: ACYCLOVIR IVPB SCH ×3 (04:54→20:22)
[2016-06-22] MEDS ORDERED: Vancomycin Trough Check NOTE FOLLOW UP ONE (05:30)
[2016-06-22 05:53] LABS: Hematocrit 39 % (42-52); Hemoglobin 13.6 g/dl (14.0-18.0); Mean Corpuscular HGB Conc 35 g/dl (31-36); Mean Corpuscular Hemoglobin 32 pg (27-31); Mean Corpuscular Volume 92 fL (80-94); Mean Platelet Volume 8 um3 (7.4-10.4); Red Blood Count 4.22 10^6/ul (4.0-5.4); Red Cell Distribution Width 14 % (10.5-15); White Blood Count 8.2 10^3/ul (3.5-10.8)
[2016-06-22 06:04] LABS: Albumin 3.3 g/dL (3.2-5.2); BUN/Creatinine Ratio 16.7 (8-20); C Reactive Protein 8.46 mg/L (< 5.00); EGFR African American 99.9 (>60); EGFR Non-African American 77.7 (>60); Globulin 2.7 g/dL (2-4); Magnesium 2.5 mg/dL (1.9-2.7); Phosphorus 1.9 mg/dL (2.5-5.0); Potassium 3.2 mmol/L (3.5-5.0); Total Bilirubin 0.6 mg/dL (0.2-1.0)
[2016-06-22] MEDS: Magnesium Sulfate 2 GM IV* 2 GM/50 ML BAG IVPB SCH ×2 (06:15→17:34)
[2016-06-22] MEDS: Heparin VIAL(*) 5000 UNITS/ML VIAL (FIVE THOUSAND) SUBCUT SCH ×3 (06:20→23:03)
[2016-06-22] MEDS: Butalb/Acetamin/Caff TAB* 1 TAB PO PRN ×3 (07:44→20:21)
[2016-06-22] MEDS: Vancomycin(*) 1,000 MG in NS 0.9% 250 ML* 250 ML IVPB SCH (07:45)
[2016-06-22] MEDS: PROCHLORPERAZINE INJ 5 MG/ML 2 ML VIAL IV PRN ×2 (07:45→20:22)
--- NOTE | 2016-06-22 08:06 | PN ---
Subjective - Subjective Reason for Note: Progress Note History: I have spoken to Dr. Selam Carter who has signed him out to me and I have reviewed the history with the electronic medical record and also with the patient. He continues to have a 5/10 headache this morning, photophobia and nausea. This is improved compared to previous pain. He denies fevers/sweats. He has pain on moving his neck. He notices no focal weakness, or problems with speech. He is oriented and able to provide an account of his illness. His BP has remained elevated, but not as high as on admission. Active Problems: Active Problems Accelerated hypertension (Acute) I10 Encephalomyelitis (Acute) G04.90 Headache (Acute) R51 Migraine (Acute) G43.909 Nausea & vomiting (Acute) R11.2 Bilateral hearing loss (Chronic) H91.93 GERD (gastroesophageal reflux disease) (Chronic) K21.9 History of TIA (transient ischemic attack) (Chronic) Hyperlipidemia (Chronic) E78.5 Type 2 diabetes mellitus, controlled (Chronic) E11.9 Current Medications: Current Medications Acetaminophen (Tylenol Tab*) 650 mg PO Q4H PRN PRN Reason: MDD - 8 TABLETS Last Admin: 06/19/16 21:08 Dose: 650 mg Acetaminophen/Butalbital/Caffeine (Fioricet Tab*) 2 tab PO Q4H PRN PRN Reason: HEADACHE Last Admin: 06/22/16 07:44 Dose: 2 tab Al Hydrox/Mg Hydrox/Simethicone (Maalox Plus*) 30 ml PO Q4H PRN PRN Reason: INDIGESTION Last Admin: 06/20/16 02:56 Dose: 30 ml Amlodipine Besylate (Norvasc Tab*) 10 mg PO DAILY [facility] Last Admin: 06/21/16 09:00 Dose: 10 mg Heparin Sodium (Porcine) (Heparin Vial(*)) 5,000 units SUBCUT Q8HR MARIA T Last Admin: 06/22/16 06:20 Dose: 5,000 units Magnesium Sulfate (Magnesium Sulfate 2 Gm Iv*) 2 gm in 50 mls @ 50 mls/hr IVPB Q12H MARIA T Last Admin: 06/22/16 06:15 Dose: 50 mls/hr Ampicillin Sodium 2 gm/ Sodium (Chloride) 100 mls @ 200 mls/hr IVPB Q4H MARIA T Last Admin: 06/22/16 04:13 Dose: 200 mls/hr Ceftriaxone Sodium 2 gm/ (Sodium Chloride) 100 mls @ 200 mls/hr IVPB Q12H [facility] Last Admin: 06/21/16 19:41 Dose: 200 mls/hr Acyclovir Sodium 850 mg/ (Sodium Chloride) 267 mls @ 267 mls/hr IVPB Q8H [facility] Last Admin: 06/22/16 04:54 Dose: 267 mls/hr Vancomycin HCl 1,000 mg/ (Sodium Chloride) 250 mls @ 166.667 mls/hr IVPB Q8HR [facility] Last Admin: 06/22/16 07:45 Dose: 166.667 mls/hr Ketorolac Tromethamine (Toradol Inj*) 15 mg IV PUSH Q6H PRN PRN Reason: PAIN Last Admin: 06/21/16 09:01 Dose: 15 mg Lorazepam (Ativan Tab(*)) 0.5 mg PO Q6H PRN PRN Reason: ANXIETY Lorazepam (Ativan Inj*) 0.25 mg IV PUSH Q4H PRN PRN Reason: AGITATION Last Admin: 06/20/16 23:34 Dose: 0.25 mg Metoclopramide HCl (Reglan Iv*) 10 mg IV Q6H PRN PRN Reason: NAUSEA/VOMITING Last Admin: 06/20/16 12:24 Dose: 10 mg Metoprolol Tartrate (Lopressor Iv*) 5 mg IV Q6H PRN PRN Reason: BLOOD PRESSURE Last Admin: 06/20/16 23:34 Dose: 5 mg Metoprolol Tartrate (Lopressor Tab*) 50 mg PO Q12H [facility] Last Admin: 06/22/16 02:18 Dose: 50 mg Omeprazole (Prilosec Cap*) 20 mg PO DAILY [facility] Last Admin: 06/21/16 09:01 Dose: 20 mg Oxycodone HCl (Roxycodone Tab*) 5 mg PO Q4H PRN PRN Reason: HEADACHE NOT RELIEVED BY ABHI Last Admin: 06/22/16 04:58 Dose: 5 mg Pharmacy Consult (Vancomycin Per Pharmacy*) 1 note FOLLOW UP . PRN PRN Reason: PER PROTOCOL Prochlorperazine Edisylate (Compazine Inj*) 10 mg IV Q6H PRN PRN Reason: NAUSEA Last Admin: 06/22/16 07:45 Dose: 10 mg - Review of Systems Constitutional Symptoms: No: Fever, Night Sweats Pulmonary: Positive: Cough - hurts head Negative: Sputum, Hemoptysis, Wheezing, Respiratory Distress, Shortness of Breath Cardiology: Negative: Chest Pain, Shortness of Breath, Palpitations, Swelling of Ankles, Edema Gastroenterology: Positive: Nausea Negative: Abdominal Pain, Vomiting, Constipation, Diarrhea Genital - Urinary: Negative: Dysuria, Hematuria Home Medications: Home Medications Medication Instructions Recorded Confirmed Type Dcejihq-Gjnzhlycxvwsk-Pimtzfwm 1 tab PO Q8H PRN 09/28/15 05/27/16 History [Excedrin Migraine 250-250-65 mg] Butalb/Acetamin/Caff TAB* 1 tab PO Q6H PRN 09/28/15 05/27/16 History [Fioricet TAB*] Cholecalciferol [Vitamin D] 1,000 unit PO DAILY 09/28/15 05/27/16 History Magnesium 500 mg PO DAILY 09/28/15 05/27/16 History Multiple Vitamins W/ Minerals 1 tab PO DAILY 09/28/15 05/27/16 History [Multivitamin Adults] Clopidogrel TAB* [Plavix TAB*] 75 mg PO DAILY 05/26/16 05/26/16 History Metoprolol Succinate [Toprol Xl] 25 mg PO DAILY 05/26/16 05/26/16 History Pravastatin (NF) [Pravachol (NF)] 10 mg PO DAILY 05/26/16 05/26/16 History Atorvastatin* [Lipitor 40 MG*] 40 mg PO QPM 05/27/16 05/27/16 History Nrclmfzstgd-Whuxuzqvxzt-Fmh C- 1 tab PO DAILY 05/27/16 05/27/16 History [Glucosamine Chondroitin] Vitamin B Complex TAB* [Complex 1 tab PO DAILY 05/27/16 05/27/16 History B-100*] Ondansetron ODT TAB* [Zofran 4 MG 4 mg PO Q8H PRN #15 tab.odt 06/18/16 Rx Odt TAB*] Allergies: Allergies Allergy/AdvReac Type Severity Reaction Status Date / Time Atorvastatin Allergy Unknown Verified 06/17/16 18:45 Reaction Details Codeine Allergy See Comment Verified 06/17/16 18:45 Lisinopril Allergy Unknown Verified 06/17/16 18:45 Reaction Details Sucralfate [From Carafate] Allergy Unknown Verified 06/17/16 18:45 Reaction Details Objective - Vital Signs Vital Signs: Vital Signs 06/21/16 06/21/16 06/21/16 11:36 13:26 15:26 Temperature 98.1 F Pulse Rate 61 Respiratory 15 16 16 Rate Blood Pressure 162/85 (mmHg) O2 Sat by Pulse 95 Oximetry 06/21/16 06/21/16 06/21/16 15:39 20:12 20:13 Temperature 98.3 F 98.9 F Pulse Rate 52 59 60 Respiratory 16 16 Rate Blood Pressure 154/75 172/91 188/88 (mmHg) O2 Sat by Pulse 97 96 Oximetry 06/21/16 06/21/16 06/21/16 20:26 20:40 22:26 Temperature Pulse Rate Respiratory 20 20 20 Rate Blood Pressure (mmHg) O2 Sat by Pulse Oximetry 06/21/16 06/22/16 06/22/16 23:30 04:58 06:58 Temperature 99.1 F Pulse Rate 64 Respiratory 16 20 18 Rate Blood Pressure 161/81 (mmHg) O2 Sat by Pulse 97 Oximetry 06/22/16 07:44 Temperature Pulse Rate Respiratory 18 Rate Blood Pressure (mmHg) O2 Sat by Pulse Oximetry - Intake and Output Intake and Output: Intake & Output 06/19/16 06/20/16 06/21/16 06/22/16 11:59 11:59 11:59 11:59 Intake Total 8941 182 4351 Output Total 400 300 0 Balance 570 241 8577 Weight 200 lb 14.4 oz Intake: IV Fluids 1010 817 ABX - AMPICILLIN 200 ABX - CEFTRIAXONE 100 ABX - VANCOMYCIN 250 ACYCLOVIR 267 IVPB 573 755 3638 ABX - AMPICILLIN 500 ABX - CEFTRIAXONE 100 105 ABX - VANCOMYCIN 500 ACYCLOVIR 267 500 Oral 0 560 960 Output: Urine 400 300 0 Other: Estimated Void Small # Bowel Movements 0 0 0 # Voids 1 1 2 ADLs: Meal Record Start: 06/19/16 15: 44 Freq: DAILY@0900,1400,1800 Status: Active Created 06/19/16 15:44 System (Rec: 06/19/16 15:44 System MED-M13) Document 06/19/16 18:00 [id number] (Rec: 06/19/16 21:32 [id number] MED-C11) Document 06/20/16 14:00 [id number] (Rec: 06/20/16 14:43 [id number] MED-C11) Document 06/20/16 18:00 [id number] (Rec: 06/20/16 18:28 [id number] MED-C09) Document 06/21/16 09:00 [id number] (Rec: 06/21/16 15:07 [id number] MED-C09) Document 06/21/16 14:00 [id number] (Rec: 06/21/16 15:09 [id number] MED-C09) Document 06/21/16 18:00 [id number] (Rec: 06/21/16 22:48 [id number] MED-C11) Intake and Output Start: 06/19/16 15: 44 Freq: DAILY@0600,1400,2200 Status: Active Created 06/19/16 15:44 System (Rec: 06/19/16 15:44 System MED-M13) Document 06/19/16 22:00 [id number] (Rec: 06/19/16 22:32 [id number] MED-C11) Document 06/20/16 05:49 [id number] (Rec: 06/20/16 05:49 [id number] MED-C42) Document 06/20/16 14:00 [id number] (Rec: 06/20/16 14:43 [id number] MED-C11) Document 06/20/16 22:00 [id number] (Rec: 06/20/16 22:08 [id number] MEDL-C01) Document 06/21/16 06:00 [id number] (Rec: 06/21/16 06:14 [id number] MED-C26) Document 06/21/16 14:00 [id number] (Rec: 06/21/16 15:09 [id number] MED-C09) Document 06/21/16 22:00 [id number] (Rec: 06/21/16 22:49 [id number] MED-C11) Document 06/22/16 05:56 [id number] (Rec: 06/22/16 05:56 [id number] MED-C26) - Physical Exam General Physical Exam Comment: He is awake and alert. He has normal, fluent speech. Oriented x 3. He has insight into his situation. Able to follow complex commands. He is left handed General: No Cyanosis, No Anemia, No Jaundice, No Clubbing Eye Exam: right: PERRLA, Normal Fundi, EOMI, bilateral: Vision Field - normal Skin: Normal: Rash Lungs and Chest: Yes: Chest Expansion Full, Chest Expansion Symetrica, Percussion Note Resonant, Vessicular Breath Sounds. No: Crackles, Wheezes, Respiratory Distress, Use of Accessory Muscles Heart Rate and Rhythm: Regular JVP: Not Elevated Additional Cardiovascular: Yes: Normal Heart Sounds. No: Heart Murmur, Pedal Edema Abdominal Exam: Yes: Soft, Bowel Sounds Present. No: Distention, Abdominal Mass , Hepatomegaly, Abdominal Tenderness - Extremities Cranial Nerves II-XII Intact: Yes Limbs: Normal Power, Normal Tone, Normal Coordination Reflexes: Bilateral: Plantar - bilaterally downgoing - Neuro Orientation: A/O x3 Speech: Normal Results - Results Lab Results: Laboratory Results - last 24 hr 06/21/16 06/21/16 06/21/16 07:46 07:46 07:46 WBC 10.5 RBC 4.61 Hgb 14.7 Hct 42 MCV 91 MCH 32 H MCHC 35 RDW 14 Plt Count 194 MPV 8 Neut % (Auto) 75.5 Lymph % (Auto) 9.8 L Rosebud % (Auto) 12.9 H Eos % (Auto) 0.2 Baso % (Auto) 1.6 Absolute Neuts (auto) 7.9 H Absolute Lymphs (auto) 1.0 Absolute Monos (auto) 1.4 H Absolute Eos (auto) 0 Absolute Basos (auto) 0.2 Absolute Nucleated RBC 0.01 Nucleated RBC % 0.1 Sodium 133 Potassium 2.8 L Chloride 95 L Carbon Dioxide 30 Anion Gap 8 BUN 21 Creatinine 0.85 Est GFR ( Amer) 114.9 Est GFR (Non-Af Amer) 89.4 BUN/Creatinine Ratio 24.7 H Glucose 140 H Calcium 8.6 Phosphorus Magnesium Total Bilirubin AST ALT Alkaline Phosphatase Ammonia 80 H C-Reactive Protein 9.56 H Total Protein Albumin Globulin Albumin/Globulin Ratio Urine Color Urine Appearance Urine pH Ur Specific Kane Urine Protein Urine Ketones Urine Blood Urine Nitrate Urine Bilirubin Urine Urobilinogen Ur Leukocyte Esterase Urine WBC (Auto) Urine RBC (Auto) Ur Squamous Epith Cells Urine Bacteria Urine Glucose Vancomycin Trough 06/21/16 06/22/1617 08:45 05:35 05:35 WBC 8.2 RBC 4.22 Hgb 13.6 L Hct 39 L MCV 92 MCH 32 H MCHC 35 RDW 14 Plt Count 173 MPV 8 Neut % (Auto) 72.6 Lymph % (Auto) 14.6 L Rosebud % (Auto) 12.1 H Eos % (Auto) 0.4 Baso % (Auto) 0.3 Absolute Neuts (auto) 6.0 Absolute Lymphs (auto) 1.2 Absolute Monos (auto) 1.0 H Absolute Eos (auto) 0 Absolute Basos (auto) 0 Absolute Nucleated RBC 0 Nucleated RBC % 0 Sodium Potassium Chloride Carbon Dioxide Anion Gap BUN Creatinine Est GFR ( Amer) Est GFR (Non-Af Amer) BUN/Creatinine Ratio Glucose Calcium Phosphorus Magnesium Total Bilirubin AST ALT Alkaline Phosphatase Ammonia C-Reactive Protein Total Protein Albumin Globulin Albumin/Globulin Ratio Urine Color Yellow Urine Appearance Clear Urine pH 7.0 Ur Specific Kane 1.016 Urine Protein 1+(30 mg/dl) H Urine Ketones Trace H Urine Blood Negative Urine Nitrate Negative Urine Bilirubin Negative Urine Urobilinogen Negative Ur Leukocyte Esterase Negative Urine WBC (Auto) Absent Urine RBC (Auto) Trace(0-2/hpf) Ur Squamous Epith Cells Present H Urine Bacteria Absent Urine Glucose 1+(50 mg/dl) H Vancomycin Trough 13.6 06/22/16 06/22/16 05:35 05:35 WBC RBC Hgb Hct MCV MCH MCHC RDW Plt Count MPV Neut % (Auto) Lymph % (Auto) Rosebud % (Auto) Eos % (Auto) Baso % (Auto) Absolute Neuts (auto) Absolute Lymphs (auto) Absolute Monos (auto) Absolute Eos (auto) Absolute Basos (auto) Absolute Nucleated RBC Nucleated RBC % Sodium 133 Potassium 3.2 L Chloride 98 L Carbon Dioxide 29 Anion Gap 6 BUN 16 Creatinine 0.96 Est GFR ( Amer) 99.9 Est GFR (Non-Af Amer) 77.7 BUN/Creatinine Ratio 16.7 Glucose 142 H Calcium 8.0 L Phosphorus 1.9 L Magnesium 2.5 Total Bilirubin 0.60 AST 23 ALT 43 Alkaline Phosphatase 78 Ammonia 40 C-Reactive Protein 8.46 H Total Protein 6.0 L Albumin 3.3 Globulin 2.7 Albumin/Globulin Ratio 1.2 Urine Color Urine Appearance Urine pH Ur Specific Kane Urine Protein Urine Ketones Urine Blood Urine Nitrate Urine Bilirubin Urine Urobilinogen Ur Leukocyte Esterase Urine WBC (Auto) Urine RBC (Auto) Ur Squamous Epith Cells Urine Bacteria Urine Glucose Vancomycin Trough Assessment - Problem List Assessment: Patient Problems Accelerated hypertension (Acute) Encephalomyelitis (Acute) Headache (Acute) Migraine (Acute) Nausea & vomiting (Acute) Bilateral hearing loss (Chronic) GERD (gastroesophageal reflux disease) (Chronic) History of TIA (transient ischemic attack) (Chronic) Hyperlipidemia (Chronic) Type 2 diabetes mellitus, controlled (Chronic) Plan: Encephalomyelitis (Acute)Headache (Acute)Migraine (Acute): He developed a change in mental state over the weekend. LP suggestive of encephalomyelitis. For an MRI brain today. We are treating him with acyclovir and antibacterials. This is more likely to be viral (lymphocytes, normal glucose), however we are treating atypical organisms such as listeria. He is responding as he has improved clinically, according to the records. Accelerated hypertension (Acute) His BP is improved, some hypertension may be due to the pain, another aspect may be due to the [employer]IE [employer] infection. I will add losartan 100 mg daily. I will add some oral potassium Nausea & vomiting (Acute) This continues, but is improved Bilateral hearing loss (Chronic) GERD (gastroesophageal reflux disease) (Chronic) secondary diagnosis History of TIA (transient ischemic attack) (Chronic) secondary diagnosis Hyperlipidemia (Chronic) secondary diagnosis Type 2 diabetes mellitus, controlled (Chronic) controlled by diet - not a problem. I explained the above to the patient. I also spoke with his on the phone. They agree with management.
[2016-06-22] MEDS: Omeprazole CAP* 20 MG PO SCH (09:02)
[2016-06-22] MEDS: Losartan TAB* 25 MG PO SCH (09:02)
[2016-06-22] MEDS: Potassium Chlor TAB* 20 MEQ TAB.ER PO SCH ×2 (09:03→20:21)
[2016-06-22] MEDS: amLODIPine TAB* 5 MG PO SCH (09:03)
--- NOTE | 2016-06-22 14:06 | CONS ---
CONSULTATION REPORT: DATE OF CONSULT: 06/22/16 REQUESTING PHYSICIAN: Dr. Stovall. CONSULTING SERVICE: Infectious Disease. REASON FOR CONSULT: CSF pleocytosis, headache. IMPRESSION: 1. Headache, photophobia, neck stiffness, and cerebrospinal fluid pleocytosis taken together consistent with meningitis, 147 white cells with lymphocytic predominance, elevated protein, differential diagnosis includes viral causes of aseptic meningitis including the typical upper respiratory virus at this time of year, less likely enterovirus is though still possible, HSV less likely, bacterial mimics of aseptic meningitis including listeria, though spinal fluid cultures negative, leptospirosis, mycobacteria without any specific exposure history that is unlikely. The other viral consideration is lymphocytic choriomeningitis virus though he has had no rodent exposure that we can track down. He did have sick contacts with young grandchildren last . Non infectious causes are a consideration, including medication induced, autoimmune , or pseudo migraine with lymphocytic pleocytosis. 2. Migraines. 3. Diabetes. RECOMMENDATION: 1. Stop vancomycin, ceftriaxone, ampicillin. We will continue acyclovir, wait for the HSV PCR. I will also add a [facility] encephalitis panel to the spinal fluid for viral testing though would not change number operator, but may help give him a diagnosis. 2. Antiemetic and pain and headache control as you are doing. HISTORY OF PRESENT ILLNESS: This is a 70-year-old male with diabetes and migraine headaches, admitted with intractable headache, neck stiffness, photophobia, and fevers. He has had about 6 days of anorexia, some vomiting without abdominal pain or diarrhea, but now has loose stools, severe frontal headache, felt like his usual migraine but would not go away and has become much worse than his typical migraine would despite his usual maneuvers to abort the headache. He had some chills and fevers up to 100.5 from time to time and loss of appetite. He had had no rash or joint stiffness. Next, he came to the ER, was given more pain control, came back the . He is afebrile, had a white count of 9000. He had a lumbar puncture done, which showed 147 white cells, 85% lymphocytes, protein 230, glucose 86. He was started on vancomycin, ceftriaxone, ampicillin, acyclovir. His headache is improved. It is down to a 2/10, it is still frontal. Photophobia and neck stiffness are much better. He still has nausea but is eating clear liquids, he has had loose stools since yesterday. He has never had anything like this before. PAST MEDICAL HISTORY: 1. Migraine headache. 2. Type 2 diabetes. 3. Hyperlipidemia. 4. Gastroesophageal reflux disease. 5. Hearing loss. 6. History of trigger finger release and basal cell carcinoma. 7. TIA. MEDICATIONS: 1. Tylenol. 2. Acyclovir 850 mg every 8 hours. 3. Ampicillin 2 g IV every 4 hours. 4. Fioricet. 5. Ketorolac. 6. Metoprolol. 7. Omeprazole. 8. Vancomycin 1 g every 8 hours. 9. Ceftriaxone 2 g every 12 hours. 10. Oxycodone. SOCIAL HISTORY: He lives in [place] with his . He traveled at [facility] to see his grandkids in [place]. They have a pet dog. No other pets. He has no pets at home. He traveled to [place] about 2 weeks ago, had seafood there , did not get sick while he was there and no one else was sick on the trip. He has had no foreign travel recently. He was in [employer] in [place], has not otherwise lived abroad. REVIEW OF SYSTEMS: Full review of systems was negative except as noted above. PHYSICAL EXAM: Vital Signs: Temperature 37, heart rate 60, respiratory rate 16 , blood pressure 160/70, O2 sat 94% on room air. In general, he is awake, in no distress. Neurologic: He is oriented x3, follows all commands, moves all extremities. Cranial nerves II through XII were intact. HEENT: There is no conjunctival hemorrhage. Oropharynx without lesions. Neck is supple without nuchal rigidity. Lymph Nodes: There is no cervical, supraclavicular, inguinal , axillary, or epitrochlear lymphadenopathy. Heart has regular rate and rhythm without murmurs, rubs, or gallops. Lungs are clear to auscultation bilaterally. Abdomen is soft, nontender, and nondistended. There are bowel sounds present. Skin: There is no rash or splinter hemorrhages. Musculoskeletal: There is no spine tenderness to palpation. No joint synovitis. LABORATORY DATA: White blood cell count 8, hemoglobin 13, platelets 173. Creatinine is 0.9. CRP 8. Please see impressions and recommendations as outlined above. Thank you for asking me to see Mr. Rock in consultation. [id number]/CPS #: [id number] PATRIZIAD
[2016-06-22] MEDS ORDERED: Gadoteridol* (CONTRAST) 279.3 MG/ML 10 ML IV ONE (15:39)
--- NOTE | 2016-06-22 15:51 | RAD ---
HISTORY: Encephalitis COMPARISONS: September 29, 2015 TECHNIQUE: The following sequences were obtained of the head: Sagittal T1-weighted images, axial T2-weighted images, axial FLAIR images, axial susceptibility weighted images, axial T1-weighted images. Additionally, axial diffusion-weighted images were obtained with calculated apparent diffusion coefficients. Additionally, sagittal, coronal, and axial T1-weighted images were obtained after contrast enhancement with a gadolinium-based intravenous contrast agent. FINDINGS: HEMORRHAGE/INFARCT: There is no hemorrhage or acute infarct. MASSES/SHIFT: There is no mass or shift. EXTRA-AXIAL SPACES/MENINGES: There are no extra-axial fluid collections. SULCI AND VENTRICLES: The sulci and ventricles are normal in size and position for the patient's stated age. CEREBRUM: There is a chronic appearing lacunar infarct of the left caudate head. This is stable from the previous examination. There is no associated abnormal enhancement BRAINSTEM: There are no focal parenchymal abnormalities. CEREBELLUM: There are no focal parenchymal abnormalities. The cerebellar tonsils are normal in size and position. SELLA: The sella is normal. PINEAL: The pineal region is clear. CP ANGLE/TEMPORAL BONES: The labyrinthine structures are grossly normal. VESSELS: Normal flow-voids are noted within the visualized vertebral vasculature. DIFFUSION ABNORMALITIES: There are no diffusion abnormalities. PARANASAL SINUSES/MASTOIDS: The paranasal sinuses are clear. ORBITS: The orbits are unremarkable. BONES AND SOFT TISSUE: No bone or soft tissue abnormalities are noted. OTHER: There is no abnormal enhancement. 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
[2016-06-22] MEDS ORDERED: Gadoteridol* (CONTRAST) 279.3 MG/ML 10 ML IV SCH (16:00)
[2016-06-23] MEDS: Metoprolol Tartrate TAB* 50 mg PO SCH ×2 (01:43→14:16)
[2016-06-23] MEDS: NS 0.9% IVPB SCH ×3 (03:35→20:38)
[2016-06-23] MEDS: ACYCLOVIR IVPB SCH ×3 (03:35→20:38)
[2016-06-23 05:57] LABS: Hematocrit 38 % (42-52); Hemoglobin 13.3 g/dl (14.0-18.0); Mean Corpuscular HGB Conc 35 g/dl (31-36); Mean Corpuscular Hemoglobin 32 pg (27-31); Mean Corpuscular Volume 92 fL (80-94); Mean Platelet Volume 8 um3 (7.4-10.4); Red Blood Count 4.16 10^6/ul (4.0-5.4); Red Cell Distribution Width 14 % (10.5-15); White Blood Count 8.6 10^3/ul (3.5-10.8)
[2016-06-23] MEDS: Heparin VIAL(*) 5000 UNITS/ML VIAL (FIVE THOUSAND) SUBCUT SCH ×3 (06:03→20:39)
[2016-06-23] MEDS: Magnesium Sulfate 2 GM IV* 2 GM/50 ML BAG IVPB SCH (06:04)
[2016-06-23 06:27] LABS: BUN/Creatinine Ratio 10.8 (8-20); C Reactive Protein 7.08 mg/L (< 5.00); EGFR African American 93.1 (>60); EGFR Non-African American 72.4 (>60); Potassium 2.9 mmol/L (3.5-5.0)
--- NOTE | 2016-06-23 07:41 | PN ---
Subjective - Subjective Reason for Note: Progress Note History: He complains that his headache is a little worse than yesterday, but that the nausea has gone. He is fully oriented and able to give an account of himself. He has no other new symptoms. He feels unsteady on his feet when walking to the bathroom Active Problems: Active Problems Accelerated hypertension (Acute) I10 Aseptic meningitis (Acute) G03.0 Headache (Acute) R51 Migraine (Acute) G43.909 Nausea & vomiting (Acute) R11.2 Bilateral hearing loss (Chronic) H91.93 GERD (gastroesophageal reflux disease) (Chronic) K21.9 History of TIA (transient ischemic attack) (Chronic) Hyperlipidemia (Chronic) E78.5 Type 2 diabetes mellitus, controlled (Chronic) E11.9 Current Medications: Current Medications Acetaminophen (Tylenol Tab*) 650 mg PO Q4H PRN PRN Reason: MDD - 8 TABLETS Last Admin: 06/19/16 21:08 Dose: 650 mg Acetaminophen/Butalbital/Caffeine (Fioricet Tab*) 2 tab PO Q4H PRN PRN Reason: HEADACHE Last Admin: 06/22/16 20:21 Dose: 2 tab Al Hydrox/Mg Hydrox/Simethicone (Maalox Plus*) 30 ml PO Q4H PRN PRN Reason: INDIGESTION Last Admin: 06/20/16 02:56 Dose: 30 ml Amlodipine Besylate (Norvasc Tab*) 10 mg PO DAILY [facility] Last Admin: 06/22/16 09:03 Dose: 10 mg Gadoteridol (Prohance* (Contrast)) 200 ml IV ONCE MARAI T Stop: 06/24/16 15:38 Heparin Sodium (Porcine) (Heparin Vial(*)) 5,000 units SUBCUT Q8HR MARIA T Last Admin: 06/23/16 06:03 Dose: 5,000 units Magnesium Sulfate (Magnesium Sulfate 2 Gm Iv*) 2 gm in 50 mls @ 50 mls/hr IVPB Q12H MARIA T Last Admin: 06/23/16 06:04 Dose: 50 mls/hr Acyclovir Sodium 850 mg/ (Sodium Chloride) 267 mls @ 267 mls/hr IVPB Q8H MARIA T Last Admin: 06/23/16 03:35 Dose: 267 mls/hr Ketorolac Tromethamine (Toradol Inj*) 15 mg IV PUSH Q6H PRN PRN Reason: PAIN Last Admin: 06/21/16 09:01 Dose: 15 mg Lorazepam (Ativan Tab(*)) 0.5 mg PO Q6H PRN PRN Reason: ANXIETY Lorazepam (Ativan Inj*) 0.25 mg IV PUSH Q4H PRN PRN Reason: AGITATION Last Admin: 06/20/16 23:34 Dose: 0.25 mg Losartan Potassium (Cozaar Tab*) 100 mg PO DAILY [facility] Last Admin: 06/22/16 09:02 Dose: 100 mg Metoclopramide HCl (Reglan Iv*) 10 mg IV Q6H PRN PRN Reason: NAUSEA/VOMITING Last Admin: 06/20/16 12:24 Dose: 10 mg Metoprolol Tartrate (Lopressor Iv*) 5 mg IV Q6H PRN PRN Reason: BLOOD PRESSURE Last Admin: 06/20/16 23:34 Dose: 5 mg Metoprolol Tartrate (Lopressor Tab*) 50 mg PO Q12H [facility] Last Admin: 06/23/16 01:43 Dose: 50 mg Omeprazole (Prilosec Cap*) 20 mg PO DAILY [facility] Last Admin: 06/22/16 09:02 Dose: 20 mg Oxycodone HCl (Roxycodone Tab*) 5 mg PO Q4H PRN PRN Reason: HEADACHE NOT RELIEVED BY ABHI Last Admin: 06/22/16 04:58 Dose: 5 mg Potassium Chloride (Klor Con Er Tab*) 20 meq PO BID [facility] Last Admin: 06/22/16 20:21 Dose: 20 meq Prochlorperazine Edisylate (Compazine Inj*) 10 mg IV Q6H PRN PRN Reason: NAUSEA Last Admin: 06/22/16 20:22 Dose: 10 mg Home Medications: Home Medications Medication Instructions Recorded Confirmed Type Btlptjd-Vbymuijzbwzcf-Vydndcwz 1 tab PO Q8H PRN 09/28/15 05/27/16 History [Excedrin Migraine 250-250-65 mg] Butalb/Acetamin/Caff TAB* 1 tab PO Q6H PRN 09/28/15 05/27/16 History [Fioricet TAB*] Cholecalciferol [Vitamin D] 1,000 unit PO DAILY 09/28/15 05/27/16 History Magnesium 500 mg PO DAILY 09/28/15 05/27/16 History Multiple Vitamins W/ Minerals 1 tab PO DAILY 09/28/15 05/27/16 History [Multivitamin Adults] Clopidogrel TAB* [Plavix TAB*] 75 mg PO DAILY 05/26/16 05/26/16 History Metoprolol Succinate [Toprol Xl] 25 mg PO DAILY 05/26/16 05/26/16 History Pravastatin (NF) [Pravachol (NF)] 10 mg PO DAILY 05/26/16 05/26/16 History Atorvastatin* [Lipitor 40 MG*] 40 mg PO QPM 05/27/16 05/27/16 History Buupbqeukgr-Iicvhlghynt-Eli C- 1 tab PO DAILY 05/27/16 05/27/16 History [Glucosamine Chondroitin] Vitamin B Complex TAB* [Complex 1 tab PO DAILY 05/27/16 05/27/16 History B-100*] Ondansetron ODT TAB* [Zofran 4 MG 4 mg PO Q8H PRN #15 tab.odt 06/18/16 Rx Odt TAB*] Allergies: Allergies Allergy/AdvReac Type Severity Reaction Status Date / Time Atorvastatin Allergy Unknown Verified 06/17/16 18:45 Reaction Details Codeine Allergy See Comment Verified 06/17/16 18:45 Lisinopril Allergy Unknown Verified 06/17/16 18:45 Reaction Details Sucralfate [From Carafate] Allergy Unknown Verified 06/17/16 18:45 Reaction Details Objective - Vital Signs Vital Signs: Vital Signs 06/22/16 06/22/16 06/22/16 07:44 07:51 08:00 Temperature 98.3 F Pulse Rate 61 Respiratory 18 16 16 Rate Blood Pressure 159/72 (mmHg) O2 Sat by Pulse 94 Oximetry 06/22/16 06/22/16 06/22/16 09:44 12:07 14:07 Temperature 99.1 F Pulse Rate 56 Respiratory 16 20 16 Rate Blood Pressure 152/74 (mmHg) O2 Sat by Pulse 98 Oximetry 06/22/16 06/22/16 06/22/16 16:07 16:23 19:27 Temperature 98.1 F 98.5 F Pulse Rate 53 58 Respiratory 16 16 16 Rate Blood Pressure 170/76 147/74 (mmHg) O2 Sat by Pulse 97 94 Oximetry 06/22/16 06/22/16 06/22/16 20:00 20:21 22:21 Temperature Pulse Rate Respiratory 16 16 18 Rate Blood Pressure (mmHg) O2 Sat by Pulse Oximetry 06/22/16 06/23/16 06/23/16 23:16 03:27 03:33 Temperature 98.1 F Pulse Rate 60 51 Respiratory 16 16 Rate Blood Pressure 148/79 187/74 158/78 (mmHg) O2 Sat by Pulse 95 94 Oximetry - Intake and Output Intake and Output: Intake & Output 06/20/16 06/21/16 06/22/16 06/23/16 11:59 11:59 11:59 11:59 Intake Total 9809 296 1184 2709 Output Total 400 300 0 Balance 484 580 8458 2709 Weight 200 lb 14.4 oz 200 lb Intake: IV Fluids 1010 817 287 ABX - AMPICILLIN 200 ABX - CEFTRIAXONE 100 ABX - VANCOMYCIN 250 ACYCLOVIR 267 267 NS (0.9%) 20 IVPB 300 174 3597 790 ABX - AMPICILLIN 500 110 ABX - CEFTRIAXONE 100 105 110 ABX - VANCOMYCIN 500 ACYCLOVIR 267 500 540 NS (0.9%) 30 Oral 0 560 1320 1632 Output: Urine 400 300 0 Other: Estimated Void Small Medium Medium # Bowel Movements 0 0 0 4 # Voids 1 1 2 2 ADLs: Meal Record Start: 06/19/16 15: 44 Freq: DAILY@0900,1400,1800 Status: Active Created 06/19/16 15:44 System (Rec: 06/19/16 15:44 System MED-M13) Document 06/19/16 18:00 [id number] (Rec: 06/19/16 21:32 [id number] MED-C11) Document 06/20/16 14:00 [id number] (Rec: 06/20/16 14:43 [id number] MED-C11) Document 06/20/16 18:00 [id number] (Rec: 06/20/16 18:28 [id number] MED-C09) Document 06/21/16 09:00 [id number] (Rec: 06/21/16 15:07 [id number] MED-C09) Document 06/21/16 14:00 [id number] (Rec: 06/21/16 15:09 [id number] MED-C09) Document 06/21/16 18:00 [id number] (Rec: 06/21/16 22:48 [id number] MED-C11) Document 06/22/16 09:00 [id number] (Rec: 06/22/16 10:59 [id number] MED-C11) Document 06/22/16 13:44 [id number] (Rec: 06/22/16 13:45 [id number] MED-C11) Document 06/22/16 15:25 [id number] (Rec: 06/22/16 15:26 [id number] MED-C13) Document 06/22/16 18:00 [id number] (Rec: 06/22/16 18:27 [id number] MED-C09) Intake and Output Start: 06/19/16 15: 44 Freq: DAILY@0600,1400,2200 Status: Active Created 06/19/16 15:44 System (Rec: 06/19/16 15:44 System MED-M13) Document 06/19/16 22:00 [id number] (Rec: 06/19/16 22:32 [id number] MED-C11) Document 06/20/16 05:49 [id number] (Rec: 06/20/16 05:49 [id number] MED-C42) Document 06/20/16 14:00 [id number] (Rec: 06/20/16 14:43 [id number] MED-C11) Document 06/20/16 22:00 [id number] (Rec: 06/20/16 22:08 [id number] MEDL-C01) Document 06/21/16 06:00 [id number] (Rec: 06/21/16 06:14 [id number] MED-C26) Document 06/21/16 14:00 [id number] (Rec: 06/21/16 15:09 [id number] MED-C09) Document 06/21/16 22:00 [id number] (Rec: 06/21/16 22:49 [id number] MED-C11) Document 06/22/16 05:56 [id number] (Rec: 06/22/16 05:56 [id number] MED-C26) Document 06/22/16 13:44 [id number] (Rec: 06/22/16 13:45 [id number] MED-C11) Document 06/22/16 21:57 [id number] (Rec: 06/22/16 21:58 [id number] MED-C09) Document 06/23/16 05:51 [id number] (Rec: 06/23/16 05:54 [id number] [facility]-C26) - Physical Exam General: No Cyanosis, No Anemia, No Jaundice, No Lymphadenopathy, No Clubbing Eye Exam: bilateral: EOMI Skin: Normal: Rash Lungs and Chest: Yes: Chest Expansion Full, Chest Expansion Symetrica, Percussion Note Resonant, Vessicular Breath Sounds. No: Crackles, Wheezes Heart Rate and Rhythm: Regular Additional Cardiovascular: Yes: Normal Heart Sounds. No: Heart Murmur, Pedal Edema Abdominal Exam: Yes: Soft, Bowel Sounds Present. No: Distention, Abdominal Mass , Hepatomegaly, Splenomegaly - Extremities Cranial Nerves II-XII Intact: Yes Limbs: Normal Power, Normal Tone - Neuro Orientation: A/O x3 Speech: Normal Results - Results Lab Results: Laboratory Results - last 24 hr 06/20/16 06/23/16 06/23/16 17:00 05:41 05:41 WBC 8.6 RBC 4.16 Hgb 13.3 L Hct 38 L MCV 92 MCH 32 H MCHC 35 RDW 14 Plt Count 171 MPV 8 Neut % (Auto) 62.5 Lymph % (Auto) 21.8 L [place] % (Auto) 13.3 H Eos % (Auto) 1.9 Baso % (Auto) 0.5 Absolute Neuts (auto) 5.4 Absolute Lymphs (auto) 1.9 Absolute Monos (auto) 1.1 H Absolute Eos (auto) 0.2 Absolute Basos (auto) 0 Absolute Nucleated RBC 0 Nucleated RBC % 0 Sodium 135 Potassium 2.9 L Chloride 100 L Carbon Dioxide 30 Anion Gap 5 BUN 11 Creatinine 1.02 Est GFR ( Amer) 93.1 Est GFR (Non-Af Amer) 72.4 BUN/Creatinine Ratio 10.8 Glucose 124 H Calcium 8.0 L C-Reactive Protein 7.08 H Fluid Cell Count Rvw By Assessment - Problem List Assessment: Patient Problems Accelerated hypertension (Acute) Aseptic meningitis (Acute) Headache (Acute) Migraine (Acute) Nausea & vomiting (Acute) Bilateral hearing loss (Chronic) GERD (gastroesophageal reflux disease) (Chronic) History of TIA (transient ischemic attack) (Chronic) Hyperlipidemia (Chronic) Type 2 diabetes mellitus, controlled (Chronic) Plan: Aseptic meningitis (Acute) I have reviewed Dr. Langley's consultation for infectious diseases. His opinion, together with the MRI brain are suggestive of an aseptic meningitis, rather than an encephalomyelitis. The temporal lobes are not affected, making herpes encephalitis less likely. He has stopped antibacterials. He discussed bacterial mimics of viral illness - these are unlikely. The CSF was received at [facility] yesterday and hence we don't expect a result for the HSV PCR. We need to continue his acyclovir until we have a negative result - we can arrange this as an outpatient. Headache (Acute) He has a severe headache, there is some response to fioricet. Migraine (Acute) This appears to mimic his usual migraine headache Nausea & vomiting (Acute) This has stopped Hypokalemia - I will correct this today Bilateral hearing loss (Chronic) secondary diagnosis GERD (gastroesophageal reflux disease) (Chronic) secondary diagnosis History of TIA (transient ischemic attack) (Chronic) secondary diagnosis Hyperlipidemia (Chronic) secondary diagnosis Type 2 diabetes mellitus, controlled (Chronic) stable Hypertension: His BP spikes at times - this may relate to pain in his head I explained the above to the patient and he agrees with the management plan. I tried calling his , no reply to phone call.
[2016-06-23] MEDS ORDERED: KCL 20 MEQ/100 ML IVPREMIX* 20 MEQ/100 ML BAG IV ONE (07:51)
[2016-06-23] MEDS: Butalb/Acetamin/Caff TAB* 1 TAB PO PRN ×3 (08:04→23:42)
[2016-06-23] MEDS: amLODIPine TAB* 5 MG PO SCH (08:05)
[2016-06-23] MEDS: Potassium Chlor TAB* 20 MEQ TAB.ER PO SCH ×2 (08:05→20:38)
[2016-06-23] MEDS: Losartan TAB* 25 MG PO SCH (08:05)
[2016-06-23] MEDS: Omeprazole CAP* 20 MG PO SCH (08:05)
--- NOTE | 2016-06-23 08:12 | PN ---
NEUROLOGICAL FOLLOWUP: DATE OF SERVICE/DICTATION: 06/22/16 HISTORY: His headache is better than yesterday and does not have a headache at all. At this point, the Fioricet had not been helping, but now is controlling his headache. He has had some slight speech, which he was complaining about as far back as Wednesday, but there are no new symptoms. He remains on his acyclovir and Dr. Langley has seen him. PHYSICAL EXAMINATION: Vital Signs: Temperature currently 99.1, pulse 56, respirations 16, and blood pressure 152/74. Neurologic: He is alert and oriented with normal speech and comprehension. Cranial nerves II through XII were intact. Fundi were benign. Chest: Clear. Cardiovascular: Regular rate and rhythm. Abdomen: Soft with positive bowel sounds. DIAGNOSTIC STUDIES/LAB DATA: His MRI scan was reviewed and showed no acute findings with and without contrast. 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 His herpes and cryptococcal studies were pending. IMPRESSION: Mr. Rock is doing much better. He is no longer encephalopathic. I discussed issues of meningo-encephalitis with his . He is on acyclovir pending and his herpes PCR studies. He is still on Toradol. I am going to stop this even though he is better sometimes that can contribute to the aseptic meningitis. I do not think that this is the cause, but I do not want to have his symptoms exacerbated by it. Thank you for sharing his case. [id number]/CPS #: [id number] [facility]
--- NOTE | 2016-06-23 15:58 | PN ---
Progress Note - Progress Note SOAP: Subjective: DOS: 06/23/16 HPI: 70 year old man with migraine and recent prolonged severe headache, neck stiffness, photophobia, now improved headache though not resolved. No neck stiffness or photophobia, appetite normal. No fever, rash, or diarrhea. Objective: [] Vital Signs Temp 36.9 C 06/23/16 15:20 Pulse 67 06/23/16 15:20 Resp 18 06/23/16 15:34 BP 148/67 06/23/16 15:20 Pulse Ox 96 06/23/16 15:20 Intake & Output 06/22/16 06/23/16 06/23/16 18:59 06:59 18:59 Intake Total 2080 989 1588 Balance 2080 989 1588 Weight 200 lb Intake: IV Fluids 287 ACYCLOVIR 267 NS (0.9%) 20 IVPB 490 300 388 ABX - AMPICILLIN 110 ABX - CEFTRIAXONE 110 ACYCLOVIR 270 270 278 KCL 110 NS (0.9%) 30 Oral 4742 595 7812 Other: Estimated Void Medium Medium # Bowel Movements 0 4 0 # Voids 3 2 3 Gen:Awake, no distress HEENT:PERRL, MMM Neck:supple Neuro: CN 2-12 intact Heart:RRR no murmur Lungs:CTA BL Abd:+BS NTND soft Skin: No rash Laboratory Results - last 24 hr 06/23/16 06/23/16 05:41 05:41 WBC 8.6 RBC 4.16 Hgb 13.3 L Hct 38 L MCV 92 MCH 32 H MCHC 35 RDW 14 Plt Count 171 MPV 8 Neut % (Auto) 62.5 Lymph % (Auto) 21.8 L [place] % (Auto) 13.3 H Eos % (Auto) 1.9 Baso % (Auto) 0.5 Absolute Neuts (auto) 5.4 Absolute Lymphs (auto) 1.9 Absolute Monos (auto) 1.1 H Absolute Eos (auto) 0.2 Absolute Basos (auto) 0 Absolute Nucleated RBC 0 Nucleated RBC % 0 Sodium 135 Potassium 2.9 L Chloride 100 L Carbon Dioxide 30 Anion Gap 5 BUN 11 Creatinine 1.02 Est GFR ( Amer) 93.1 Est GFR (Non-Af Amer) 72.4 BUN/Creatinine Ratio 10.8 Glucose 124 H Calcium 8.0 L C-Reactive Protein 7.08 H Assessment: 1. aseptic meningitis, with encephalopathy, present on admission. differential includes viral or noninfectious including pseudomigrain with lymphocytic pleocytosis. I think that his rapid improvement argues against HSV encephalitis 2. hypokalemia 3. mild elevation CRP Plan: 1. I favor stopping acyclovir and continuing supportive care only, will discuss with Dr Stovall
[2016-06-23 16:53] LABS: CSF VDRL Negative (Negative)
[2016-06-23 19:52] LABS: HSV 1 PCR, CSF Negative (Negative); HSV 2 PCR, CSF Negative (Negative)
[2016-06-24] MEDS: Metoprolol Tartrate TAB* 50 mg PO SCH (01:31)
[2016-06-24] MEDS: NS 0.9% IVPB SCH (04:50)
[2016-06-24] MEDS: Heparin VIAL(*) 5000 UNITS/ML VIAL (FIVE THOUSAND) SUBCUT SCH (04:50)
[2016-06-24] MEDS: ACYCLOVIR IVPB SCH (04:50)
--- NOTE | 2016-06-24 06:23 | PN ---
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 His headache is now significantly improved. He describes it as a 2/10 and feels much better. He has not been confused and he has continued to be on his acyclovir. PHYSICAL EXAMINATION: Temperature 98.4, pulse 67, respirations 18, blood pressure 148/67. He was alert and oriented with normal speech and comprehension. Cranial nerves II through XII are intact. Motor exam revealed a normal tone, strength, coordination. Chest is clear. Cardiovascular is regular rate and rhythm. Abdomen is soft. Positive bowel sounds. LABORATORY DATA: His herpes PCR is pending. His CBC from today showed a white count of 8.6, hematocrit 38, platelet count of 171. His chemistries from today potassium 2.5, glucose 124, calcium 8.0. His CRP was 7.08. IMPRESSION: I discussed this with Vladimir and his that he had a severe encephalopathy on Wednesday. He clearly had evidence of meningitis on his spinal tap, this most likely is viral. 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 Discussed with the that encephalopathy that we were seeing on Wednesday, I think most likely that there was a degree of encephalitis involved with this, causing the encephalopathy rather than just meningitis, but in any event it does not clinically matter at this point. We discussed that the negative MRI scan is reassuring and his clinical course is even more reassuring that there has been no persistent brain injury, but at this time on Wednesday he clearly was having significant cerebral dysfunction. Thank you for sharing his case. [id number] #: [id number] JOMAR
[2016-06-24 06:25] LABS: BUN/Creatinine Ratio 13.1 (8-20); Calcium 8.5 mg/dL (8.6-10.3); EGFR African American 96.4 (>60); Potassium 3.4 mmol/L (3.5-5.0)
[2016-06-24 07:42] VITALS: BP 157/88
--- NOTE | 2016-06-24 08:26 | PN ---
Subjective - Subjective Reason for Note: Discharge Note History: He is much better. He has a 3/10 headache, no nausea and improving photophobia. He walked around the [place] x 3 yesterday. He feels ready for discharge Active Problems: Active Problems Accelerated hypertension (Acute) I10 Aseptic meningitis (Acute) G03.0 Headache (Acute) R51 Migraine (Acute) G43.909 Nausea & vomiting (Acute) R11.2 Bilateral hearing loss (Chronic) H91.93 GERD (gastroesophageal reflux disease) (Chronic) K21.9 History of TIA (transient ischemic attack) (Chronic) Hyperlipidemia (Chronic) E78.5 Type 2 diabetes mellitus, controlled (Chronic) E11.9 Current Medications: Current Medications Acetaminophen (Tylenol Tab*) 650 mg PO Q4H PRN PRN Reason: MDD - 8 TABLETS Last Admin: 06/19/16 21:08 Dose: 650 mg Acetaminophen/Butalbital/Caffeine (Fioricet Tab*) 2 tab PO Q4H PRN PRN Reason: HEADACHE Last Admin: 06/23/16 23:42 Dose: 2 tab Al Hydrox/Mg Hydrox/Simethicone (Maalox Plus*) 30 ml PO Q4H PRN PRN Reason: INDIGESTION Last Admin: 06/20/16 02:56 Dose: 30 ml Amlodipine Besylate (Norvasc Tab*) 10 mg PO DAILY [facility] Last Admin: 06/23/16 08:05 Dose: 10 mg Heparin Sodium (Porcine) (Heparin Vial(*)) 5,000 units SUBCUT Q8HR [facility] Last Admin: 06/24/16 04:50 Dose: 5,000 units Heparin Sodium (Porcine) (Heparin Flush Picc/Ml/Cvc(*)) 1 - 3 ml FLUSH 0600, 1800 MARIA T PRN Reason: Protocol Last Admin: 06/24/16 06:15 Dose: 1 ml Acyclovir Sodium 850 mg/ (Sodium Chloride) 267 mls @ 267 mls/hr IVPB Q8H [facility] Last Admin: 06/24/16 04:50 Dose: 267 mls/hr Losartan Potassium (Cozaar Tab*) 100 mg PO DAILY [facility] Last Admin: 06/23/16 08:05 Dose: 100 mg Metoclopramide HCl (Reglan Iv*) 10 mg IV Q6H PRN PRN Reason: NAUSEA/VOMITING Last Admin: 06/20/16 12:24 Dose: 10 mg Metoprolol Tartrate (Lopressor Tab*) 50 mg PO Q12H [facility] Last Admin: 06/24/16 01:31 Dose: 50 mg Omeprazole (Prilosec Cap*) 20 mg PO DAILY [facility] Last Admin: 06/23/16 08:05 Dose: 20 mg Oxycodone HCl (Roxycodone Tab*) 5 mg PO Q4H PRN PRN Reason: HEADACHE NOT RELIEVED BY ABHI Last Admin: 06/22/16 04:58 Dose: 5 mg Potassium Chloride (Klor Con Er Tab*) 20 meq PO BID [facility] Last Admin: 06/23/16 20:38 Dose: 20 meq Prochlorperazine Edisylate (Compazine Inj*) 10 mg IV Q6H PRN PRN Reason: NAUSEA Last Admin: 06/22/16 20:22 Dose: 10 mg Home Medications: Home Medications Medication Instructions Recorded Confirmed Type Hfdzdlh-Evqwetkdswkgj-Amnielbc 1 tab PO Q8H PRN 09/28/15 06/23/16 History [Excedrin Migraine 250-250-65 mg] Butalb/Acetamin/Caff TAB* 1 tab PO Q6H PRN 09/28/15 06/23/16 History [Fioricet TAB*] Cholecalciferol [Vitamin D] 1,000 unit PO DAILY 09/28/15 06/23/16 History Magnesium 500 mg PO DAILY 09/28/15 06/23/16 History Multiple Vitamins W/ Minerals 1 tab PO DAILY 09/28/15 06/23/16 History [Multivitamin Adults] Clopidogrel TAB* [Plavix TAB*] 75 mg PO DAILY 05/26/16 06/23/16 History Metoprolol Succinate [Toprol Xl] 25 mg PO DAILY 05/26/16 06/23/16 History Pravastatin (NF) [Pravachol (NF)] 10 mg PO DAILY 05/26/16 06/23/16 History Atorvastatin* [Lipitor 40 MG*] 40 mg PO QPM 05/27/16 06/23/16 History Elbnzmfddzf-Faljcnpnkim-Tlg C- 1 tab PO DAILY 05/27/16 06/23/16 History [Glucosamine Chondroitin] Vitamin B Complex TAB* [Complex 1 tab PO DAILY 05/27/16 06/23/16 History B-100*] Ondansetron ODT TAB* [Zofran 4 MG 4 mg PO Q8H PRN #15 tab.odt 06/18/16 06/23/16 Rx Odt TAB*] Allergies: Allergies Allergy/AdvReac Type Severity Reaction Status Date / Time Atorvastatin Allergy Unknown Verified 06/17/16 18:45 Reaction Details Codeine Allergy See Comment Verified 06/17/16 18:45 Lisinopril Allergy Unknown Verified 06/17/16 18:45 Reaction Details Sucralfate [From Carafate] Allergy Unknown Verified 06/17/16 18:45 Reaction Details Objective - Vital Signs Vital Signs: Vital Signs 06/23/16 06/23/16 06/23/16 10:04 14:24 15:20 Temperature 98.5 F 98.4 F Pulse Rate 66 67 Respiratory 16 20 Rate Blood Pressure 148/68 148/67 (mmHg) O2 Sat by Pulse 98 96 Oximetry 06/23/16 06/23/16 06/23/16 15:34 17:34 20:00 Temperature Pulse Rate Respiratory 18 16 20 Rate Blood Pressure (mmHg) O2 Sat by Pulse Oximetry 06/23/16 06/23/16 06/23/16 20:04 23:36 23:42 Temperature 98.2 F 98.9 F Pulse Rate 64 74 Respiratory 24 18 18 Rate Blood Pressure 143/78 171/84 (mmHg) O2 Sat by Pulse 98 94 Oximetry 06/24/16 06/24/16 02:42 07:42 Temperature 98.8 F 98.2 F Pulse Rate 61 65 Respiratory 16 16 Rate Blood Pressure 146/69 157/88 (mmHg) O2 Sat by Pulse 95 97 Oximetry - Intake and Output Intake and Output: Intake & Output 06/21/16 06/22/16 06/23/16 06/24/16 11:59 11:59 11:59 11:59 Intake Total 927 3742 3149 1748 Output Total 300 0 Balance 627 3742 3149 1748 Weight 200 lb Intake: IV Fluids 817 287 ABX - AMPICILLIN 200 ABX - CEFTRIAXONE 100 ABX - VANCOMYCIN 250 ACYCLOVIR 267 267 NS (0.9%) 20 IVPB 367 1605 790 388 ABX - AMPICILLIN 500 110 ABX - CEFTRIAXONE 100 105 110 ABX - VANCOMYCIN 500 ACYCLOVIR 267 500 540 278 KCL 110 NS (0.9%) 30 Oral 560 1320 2072 1360 Output: Urine 300 0 Other: Estimated Void Medium Medium Medium # Bowel Movements 0 0 0 0 # Voids 1 2 1 1 ADLs: Meal Record Start: 06/19/16 15: 44 Freq: DAILY@0900,1400,1800 Status: Active Created 06/19/16 15:44 System (Rec: 06/19/16 15:44 System MED-M13) Document 06/19/16 18:00 [id number] (Rec: 06/19/16 21:32 [id number] MED-C11) Document 06/20/16 14:00 [id number] (Rec: 06/20/16 14:43 [id number] MED-C11) Document 06/20/16 18:00 [id number] (Rec: 06/20/16 18:28 [id number] MED-C09) Document 06/21/16 09:00 [id number] (Rec: 06/21/16 15:07 [id number] MED-C09) Document 06/21/16 14:00 [id number] (Rec: 06/21/16 15:09 [id number] MED-C09) Document 06/21/16 18:00 [id number] (Rec: 06/21/16 22:48 [id number] MED-C11) Document 06/22/16 09:00 [id number] (Rec: 06/22/16 10:59 [id number] MED-C11) Document 06/22/16 13:44 [id number] (Rec: 06/22/16 13:45 [id number] MED-C11) Document 06/22/16 15:25 [id number] (Rec: 06/22/16 15:26 [id number] MED-C13) Document 06/22/16 18:00 [id number] (Rec: 06/22/16 18:27 [id number] MED-C09) Document 06/23/16 09:00 [id number] (Rec: 06/23/16 10:23 [id number] MED-C11) Document 06/23/16 12:57 [id number] (Rec: 06/23/16 12:57 [id number] MED-C11) Document 06/23/16 18:00 [id number] (Rec: 06/23/16 18:28 [id number] MED-C02) Intake and Output Start: 06/19/16 15: 44 Freq: DAILY@0600,1400,2200 Status: Active Created 06/19/16 15:44 System (Rec: 06/19/16 15:44 System MED-M13) Document 06/19/16 22:00 [id number] (Rec: 06/19/16 22:32 [id number] MED-C11) Document 06/20/16 05:49 [id number] (Rec: 06/20/16 05:49 [id number] MED-C42) Document 06/20/16 14:00 [id number] (Rec: 06/20/16 14:43 [id number] MED-C11) Document 06/20/16 22:00 [id number] (Rec: 06/20/16 22:08 [id number] MEDL-C01) Document 06/21/16 06:00 [id number] (Rec: 06/21/16 06:14 [id number] MED-C26) Document 06/21/16 14:00 [id number] (Rec: 06/21/16 15:09 [id number] MED-C09) Document 06/21/16 22:00 [id number] (Rec: 06/21/16 22:49 [id number] MED-C11) Document 06/22/16 05:56 [id number] (Rec: 06/22/16 05:56 [id number] MED-C26) Document 06/22/16 13:44 [id number] (Rec: 06/22/16 13:45 [id number] MED-C11) Document 06/22/16 21:57 [id number] (Rec: 06/22/16 21:58 [id number] MED-C09) Document 06/23/16 05:51 [id number] (Rec: 06/23/16 05:54 [id number] MED-C26) Document 06/23/16 11:04 [id number] (Rec: 06/23/16 11:05 [id number] MED-C09) Document 06/23/16 12:57 [id number] (Rec: 06/23/16 12:58 [id number] MED-C11) Document 06/23/16 22:00 [id number] (Rec: 06/23/16 23:10 [id number] MED-C11) Document 06/24/16 05:37 [id number] (Rec: 06/24/16 05:37 [id number] MED-C26) - Physical Exam General: No Cyanosis, No Anemia, No Jaundice, No Clubbing Eye Exam: bilateral: EOMI Skin: Normal: Rash Lungs and Chest: Yes: Chest Expansion Full, Chest Expansion Symetrica, Percussion Note Resonant, Vessicular Breath Sounds. No: Crackles, Wheezes Heart Rate and Rhythm: Regular JVP: Not Elevated Additional Cardiovascular: Yes: Normal Heart Sounds. No: Heart Murmur, Pedal Edema Abdominal Exam: Yes: Soft, Bowel Sounds Present. No: Distention, Abdominal Tenderness - Extremities Cranial Nerves II-XII Intact: Yes Limbs: Normal Power, Normal Tone - Neuro Orientation: A/O x3 Speech: Normal Results - Results Lab Results: Laboratory Results - last 24 hr 06/20/16 06/24/16 17:00 05:10 Sodium 136 Potassium 3.4 L Chloride 104 Carbon Dioxide 25 Anion Gap 7 BUN 13 Creatinine 0.99 Est GFR ( Amer) 96.4 Est GFR (Non-Af Amer) 75.0 BUN/Creatinine Ratio 13.1 Glucose 109 H Calcium 8.5 L CSF VDRL Negative CSF Cryptococcus Ag Negative CSF HSV I (PCR) Negative CSF Herpes II DNA (PCR) Negative Assessment - Problem List Assessment: Patient Problems Accelerated hypertension (Acute) Aseptic meningitis (Acute) Headache (Acute) Migraine (Acute) Nausea & vomiting (Acute) Bilateral hearing loss (Chronic) GERD (gastroesophageal reflux disease) (Chronic) History of TIA (transient ischemic attack) (Chronic) Hyperlipidemia (Chronic) Type 2 diabetes mellitus, controlled (Chronic) Plan: See dictated discharge summary HSV 1 PCR negative. He is ready for discharge.
[2016-06-24] MEDS: Losartan TAB* 25 MG PO SCH (08:59)
[2016-06-24] MEDS: Butalb/Acetamin/Caff TAB* 1 TAB PO PRN (08:59)
[2016-06-24] MEDS: Omeprazole CAP* 20 MG PO SCH (08:59)
[2016-06-24] MEDS: amLODIPine TAB* 5 MG PO SCH (08:59)
[2016-06-24] MEDS: Potassium Chlor TAB* 20 MEQ TAB.ER PO SCH (08:59)
--- NOTE | 2016-06-24 11:01 | PN ---
Progress Note - Progress Note SOAP: Subjective: DOS: 06/24/16 HPI: 70 year old man with migraine and recent prolonged severe headache, neck stiffness, photophobia, now improved headache though not resolved. Headache nearly gone, appetite at baseline, overall feels tired. Objective: [] Vital Signs Temp 36.8 C 06/24/16 07:42 Pulse 65 06/24/16 07:42 Resp 16 06/24/16 08:59 BP 157/88 06/24/16 07:42 Pulse Ox 97 06/24/16 07:42 Intake & Output 06/23/16 06/24/16 06/24/16 18:59 06:59 18:59 Intake Total 2188 0 440 Balance 2188 0 440 Intake: IVPB 388 ACYCLOVIR 278 KCL 110 Oral 1800 0 440 Other: Estimated Void Medium Medium # Bowel Movements 0 0 0 # Voids 3 1 2 Gen:Awake, no distress HEENT:PERRL, MMM Neck:supple Neuro: CN 2-12 intact Heart:RRR no murmur Lungs:CTA BL Abd:+BS NTND soft Skin: No rash Laboratory Results - last 24 hr 06/20/16 06/24/16 17:00 05:10 Sodium 136 Potassium 3.4 L Chloride 104 Carbon Dioxide 25 Anion Gap 7 BUN 13 Creatinine 0.99 Est GFR ( Amer) 96.4 Est GFR (Non-Af Amer) 75.0 BUN/Creatinine Ratio 13.1 Glucose 109 H Calcium 8.5 L CSF VDRL Negative CSF Cryptococcus Ag Negative CSF HSV I (PCR) Negative CSF Herpes II DNA (PCR) Negative Assessment: 1. aseptic meningitis, with encephalopathy, present on admission. Differential includes viral or noninfectious including pseudomigraine with lymphocytic pleocytosis which is associated with mental status change and may have a viral trigger. 2. hypokalemia 3. mild elevation CRP Plan: 1. will be going home today, he knows to expect slow recovery in fatigue and energy over the next few weeks.
--- NOTE | 2016-06-24 23:13 | DS ---
DISCHARGE SUMMARY: DATE OF ADMISSION: 06/19/16 DATE OF DISCHARGE: 06/24/16 DISCHARGE DIAGNOSES: 1. Headache. 2. Nausea 3. Vomiting. 4. Aseptic meningitis. 5. Pseudomigraine with lymphocytic pleocytosis. 6. Accelerated hypertension. SECONDARY DIAGNOSES: 1. History of migraine. 2. Bilateral hearing loss. 3. Gastroesophageal reflux disease. 4. History of transient ischemic attack. 5. Hyperlipidemia. 6. Type 2 diabetes mellitus, treated with diet and exercise. HISTORY: Vladimir Rock is a 70-year-old left-handed white male. His presentation is documented in my admitting history and physical. He has a longstanding history of migraine. He developed a 5-day history of severe headache, nausea, vomiting, photophobia, more severe than his usual migraine. He had a visit to the emergency room where he had a CTA of his brain. A brain CT scan and lab work, all of these were negative on the day of presentation. He had been vomiting all night. He was in severe pain, had severe photophobia. Examination on the day of admission, blood pressure 190/114, temperature 100.2, pulse rate 72, oxygen saturation 97%. He had no cyanosis, anemia, jaundice, clubbing or lymphadenopathy . He was lying on his side covering his eyes. He had been vomiting. Respiratory System: Chest clear. Cardiovascular System: Pulse was regular. Heart sounds normal. No edema. Abdomen: No distention, masses, tenderness, or organomegaly. Bowel sounds are present. Nervous System : Conjugate eye movements, RAKEL. Fundi showed no papilledema. Neck flexion increased the pain, but no actual rigidity. Cranial nerves II to XII are intact. Speech was normal. Arms and Legs: Full power, normal tone and coordination. Finger-nose test was normal. Reflexes were present. Plantar responses bilaterally downgoing. He had no skin rashes. INITIAL IMPRESSION: Headache, nausea, vomiting. 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 He had a previous admission for this 17 years before. I brought him into the hospital for observation for administration of IV dihydroergotamine. He also had accelerated hypertension. I did not know if this was cause or effect. He was dehydrated and I gave him some IV fluids. INVESTIGATIONS: On 06/20/16, CT scan of the brain, no intracranial mass or hemorrhage. On 06/22/16, MRI of the brain, stable chronic lacunar infarct of the left caudate head. No evidence of any other acute infectious changes. Laboratory findings at presentation, CBC was normal. Chemistry abnormal. Potassium 3.4, glucose 153. He had normal liver function tests. On 06/21/16, C - reactive protein 9.56. Urinalysis 1+ protein, trace ketones. On 06/20/16, lumbar puncture CSF, white count 147, lymphocytes 85%, neutrophils 4%. CSF glucose was 86. CSF total protein 231. CSF VDRL, cryptococcus herpes simplex virus 1 and herpes virus 2, PCR, all negative. CONSULTATIONS: He was seen in consultation by 2 neurologists, Dr. Inessa Crockett and Dr. Mauricio Schmitt, both of whose notes are part of the electronic record. At first, Dr. Halley Crockett treated him for status migrainosus; however, he had a change and alteration in his mental state and Dr. Mauricio Schmitt recommended a lumbar puncture. He was also seen in consultation by Dr. Emile Langley on . His note is part of the electronic record. He felt that this was most like viral meningitis and suggested that we treat him empirically with acyclovir IV until we have the HSV PCR back. He considered other courses of aseptic meningitis and sent off relevant investigations. HOSPITAL COURSE: The first few days in the hospital he had severe pain, photophobia, nausea and vomiting. This slowly cleared up such that on the day of discharge, he has a 3/10 headache, no further nausea, only mild photophobia. The penultimate day on the hospital, he was able to walk around the [place] 3 times. REVIEW OF SYSTEMS: He has no fevers or sweats. No rashes. Cardiovascular System: No chest pain, shortness of breath or palpitations. Respiratory System : No productive cough or hemoptysis. Gastrointestinal System: Normal appetite. No nausea, vomiting. Slightly loose bowel habit. Urinary System was normal. Headache as above. No focal neurological symptoms. PHYSICAL EXAMINATION ON DAY OF DISCHARGE: Vital Signs: Temperature 98.2, pulse 64, respirations 16, oxygen saturation 97% on room air, blood pressure 157 /88. He has no cyanosis, anemia, jaundice, clubbing or lymphadenopathy. Cardiovascular System: His pulse was regular, normal character and volume. Venous pressure not elevated. Heart sounds were normal. No added sounds or murmurs. No pedal edema. Pedal pulses are present. No carotid bruits. Respiratory system: Chest was clear. Abdomen: Benign. Nervous System: He is alert and oriented. Conjugate eye movements. RAKEL. Cranial nerves II to XII are intact. Arms and Legs: Full power, normal tone and coordination. ASSESSMENT AND PLAN: 1. Lymphocytic meningitis, this is recovering. We do not know the organism. I stopped his acyclovir as we have ruled out herpes simplex virus. There are pending further viral assays. I explained to the patient and his that he is recovering and he will have to take it easy for a few more days until the headache goes away completely. There is no particular treatment. He continues his usual Fioricet as needed for the headache. 2. Accelerated hypertension. This is improving. He will return to his usual antihypertensive medications. I note that he had not taken any of his medications for several days prior to the admission to the hospital which explains some of his high blood pressure, but it also could be reactive to the pain. I will not add any new medications until I see him without the headache. 3. Type 2 diabetes mellitus. This has remained under good control without any intervention. He is usually just on diet and exercise. 4. History of previous stroke. I do not feel he has had any further neurological events during this hospitalization aside from the likely viral meningitis. DISCHARGE MEDICATIONS: 1. Cholecalciferol 1000 units a day. 2. Multivitamin 1 a day. 3. Aspirin 81 mg a day. 4. Fioricet 1 tablet every 6 hours as needed for headache. 5. Magnesium 500 mg daily. 6. Clopidogrel 75 mg daily. 7. Metoprolol 25 mg daily. 8. Pravastatin 10 mg daily. 9. Glucosamine and chondroitin 1 tablet a day. 10. Vitamin B complex 1 a day. 11. Ondansetron ODT tablets, take 1 as needed for nausea. CC: Dr. Langley; Mauricio Schmitt MD * [id number]/[place] [facility] #: [id number] [facility]OSPITALRod
== END 2016-06-24 11:45 | disposition home or self-care (01) | DRG 75 ==
LOC: MED 11:45 → OBSVTOIN 06-20 11:45
PROVIDERS: ADMIT Internal Medicine; ATTEND Internal Medicine
PROC: 009U3ZX Drainage of Spinal Canal, Percutaneous Approach, Diagnostic (ICD-10-PCS; principal; 2016-06-20)
DX: A87.2 Lymphocytic choriomeningitis (principal); G93.40 Encephalopathy, unspecified; I10 Essential (primary) hypertension; E11.9 Type 2 diabetes mellitus without complications; E86.0 Dehydration; R83.6 Abnormal cytological findings in cerebrospinal fluid; G43.809 Other migraine, not intractable, without status migrainosus; H91.93 Unspecified hearing loss, bilateral; K21.9 Gastro-esophageal reflux disease without esophagitis; E78.5 Hyperlipidemia, unspecified; J44.9 Chronic obstructive pulmonary disease, unspecified; E87.6 Hypokalemia; Z85.828 Personal history of other malignant neoplasm of skin; Z88.5 Allergy status to narcotic agent; Z80.0 Family history of malignant neoplasm of digestive organs; Z88.8 Allergy status to other drugs, medicaments and biological substances; Z83.3 Family history of diabetes mellitus; Z82.49 Family history of ischemic heart disease and other diseases of the circulatory system; Z86.73 Personal history of transient ischemic attack (TIA), and cerebral infarction without residual deficits; Z79.82 Long term (current) use of aspirin; Z79.02 Long term (current) use of antithrombotics/antiplatelets; Z80.42 Family history of malignant neoplasm of prostate
CPT/HCPCS: 36415; 70450; 70496; 70498; 70553; 71020; 80048; 80053; 80202; 81003; 81015; 82140; 82248; 82945; 83735; 84100; 84157; 85025; 85610; 85652; 85730; 86140; 86592; 87070; 87205; 87252; 87502; 87529; 87899; 89051; A9270-GY; A9579; J0133; J0290; J0696; J0780; J1110; J1170; J1644; J1885; J2060; J2250; J2270; J2405; J3010; J3370; J3480; Q9967

== ENCOUNTER 2018-11-18 11:34 | Observation (INO) | payer MEDICARE ==
[2018-11-18] MEDS ORDERED: NS 0.9% 1000 ML** 1,000 ML IV ONE (11:41)
--- NOTE | 2018-11-18 11:46 | ED ---
Neurological HPI - HPI Summary HPI Summary: Nisha called at 1135 while patient is in triage. Patient in room at 1135. Physician in room at 1136. The patient is a 73 y/o M presenting to [facility] accompanied by with a chief complaint of sudden onset left-sided facial and tongue numbness and left arm weakness while playing golf at 1020 this morning with last known well at 1015. He reports that he has hx of TIA on the left side with similar symptoms, except there was also numbness in the left leg. In the ED, his symptoms have improved, with current rating of 0/10 in severity. He denies any other symptoms including visual changes, headache, slurred speech, chest pain, shortness of breath, or nausea. PMHx: DM, HLD, HTN, GERD, migraine, TIA. Former smoker, occasional EtOH , no substance use. Medications reviewed. Allergies noted. Dr. Gallardo, neurology, in ED at 1137 evaluating the patient prior to CT. Patient to CT at 1138. - History of Current Complaint Chief Complaint: EDNeurologicalDeficit Stated Complaint: MINI-STROKE SYMPTOMS PER PT Time Seen by Provider: 11/18/18 11:36 Last Known Well Date: 11/18/18 10:15 Hx Obtained From: Patient Onset/Duration: Sudden Onset, Started minutes ago - at 1020, Resolved Timing: Sudden Onset Current Severity: None Pain Intensity: 0 Pain Scale Used: 0-10 Numeric Character: Weak - LUE, Numbness/Tingling - left face and tongue Aggravating: Nothing Alleviating: Spontanious Resolution Associated Signs and Symptoms: Positive: Weakness - left arm, Numbness - face, tongue. Negative: Visual Changes, Nausea/Vomiting, Shortness of Breath TPA Considered: No - patient's symptoms resolving in ED - Additional Pertinent History Primary Care Physician: [id number] - Allergy/Home Medications Allergies/Adverse Reactions: Allergies Allergy/AdvReac Type Severity Reaction Status Date / Time atorvastatin Allergy Muscle pain Verified 11/18/18 12:06 codeine Allergy Unknown Verified 11/18/18 12:06 Reaction Details lisinopril Allergy Anaphylaxis Verified 11/18/18 12:06 pantoprazole Allergy Unknown Verified 11/18/18 12:06 Reaction Details sucralfate Allergy Nausea Verified 11/18/18 12:06 Thiazides Allergy Unknown Verified 11/18/18 12:06 Reaction Details Walnuts Allergy Unknown Uncoded 11/18/18 12:06 Reaction Details Home Medications: Home Medications Multivitamins/Minerals TAB* [Theragran/minerals TAB*] 1 tab PO DAILY 11/18/18 [ History Confirmed 11/18/18] PMH/Surg Hx/FS Hx/Imm Hx Endocrine/Hematology History: Reports: Hx Diabetes - NIDDM Denies: Hx Anemia Cardiovascular History: Reports: Hx Hypercholesterolemia, Hx Hypertension, Other Cardiovascular Problems/Disorders - hypercholesterolemia/niddm Denies: Hx Pacemaker/ICD GI History: Reports: Hx Gastroesophageal Reflux Disease Denies: Hx Jaundice History: Denies: Hx Renal Disease Sensory History: Reports: Hx Contacts or Glasses, Hx Hearing Aid, Hx Hearing Problem Opthamlomology History: Reports: Hx Contacts or Glasses Neurological History: Reports: Hx Migraine, Hx Transient Ischemic Attacks (TIA) Psychiatric History: Denies: Hx Panic Disorder - Cancer History Cancer Type, Location and Year: Skin cancer - Surgical History Surgical History: Yes Surgery Procedure, Year, and Place: ABSCESS REMOVED UNDER ARM AGE 6. VASECTOMY. TRIGGER FINGER RELEASE X5 BILATERAL HANDS Infectious Disease History: No Infectious Disease History: Denies: Traveled Outside the [place] in Last 30 Days - Family History Known Family History: Positive: Hypertension - Social History Alcohol Use: Occasionally Alcohol Amount: 3 drinks per week Substance Use Type: Reports: None Hx Tobacco Use: Yes Smoking Status (MU): Former Smoker Review of Systems Positive: Other - Negative: visual changes. Negative: Chest Pain Negative: Shortness Of Breath Negative: Nausea Positive: Weakness - left arm, Numbness - left side of face, tongue. Negative: Headache, Slurred Speech All Other Systems Reviewed And Are Negative: Yes Physical Exam - Summary Physical Exam Summary: VITAL SIGNS: Reviewed. GENERAL: Patient is a well-developed and nourished male who is lying comfortable in the stretcher. Patient is not in any acute respiratory distress. HEAD AND FACE: No signs of trauma. No ecchymosis, hematomas or skull depressions. No sinus tenderness. EYES: PERRLA, EOMI x 2, No injected conjunctiva, no nystagmus. No photophobia. EARS: Hearing grossly intact. Ear canals and tympanic membranes are within normal limits. MOUTH: Oropharynx within normal limits. NECK: Supple, trachea is midline, no adenopathy, no JVD, no carotid bruit, no c- spine tenderness, neck with full ROM. No meningeal signs, no Kernig's or brudzinskis signs. CHEST: Symmetric, no tenderness at palpation. LUNGS: Clear to auscultation bilaterally. No wheezing or crackles. CVS: Regular rate and rhythm, S1 and S2 present, no murmurs or gallops appreciated. ABDOMEN: Soft, non-tender. No signs of distention. No rebound, no guarding, and no masses palpated. Bowel sounds are normal. EXTREMITIES: FROM in all major joints, no edema, no cyanosis or clubbing. NEURO: Alert and oriented x 3. No acute neurological deficits. Speech is normal and follows commands. NIH: 0. SKIN: Dry and warm. GCS: 15. Triage Information Reviewed: Yes Vital Signs On Initial Exam: Initial Vitals Temp Pulse Resp BP Pulse Ox 98.1 F 80 20 140/78 96 11/18/18 11:35 11/18/18 11:35 11/18/18 11:35 11/18/18 11:35 11/18/18 11:35 Vital Signs Reviewed: Yes - [place] Coma Scale Best Eye Response: 4 - Spontaneous Best Motor Response: 6 - Obeys Commands Best Verbal Response: 5 - Oriented Coma Scale Total: 15 Diagnostics - Vital Signs Vital Signs Temp Pulse Resp BP Pulse Ox 11/18/18 11:35 98.1 F 80 20 140/78 96 - Laboratory Result Diagrams: 11/18/18 11:54 11/18/18 11:54 Lab Statement: Any lab studies that have been ordered have been reviewed, and results considered in the medical decision making process. - Radiology CXR Radiology Interpretation Completed By: Radiologist Summary of Radiographic Findings: Impression: No evidence for active cardiopulmonary disease. ED physician has reviewed this report. - CT Brain CT CT Interpretation Completed By: Radiologist Summary of CT Findings: Impression: There is no evidence of intracranial mass or hemorrhage noted. Fluid in the right mastoid air cells unchanged from previous exam. ED physician has reviewed this report. - EKG 1156 Cardiac Rate: NL - 69 bpm EKG Rhythm: Sinus Rhythm EKG Comparison: No Significant Change - Similar to previous taken on 09/28/15. Summary of EKG Findings: EKG at 1156 reveals NSR at [address] elevations. NIH Scale - NIH Scale Level of Consciousness: Alert/Keenly Responsive Ask Patient the Month and His/Her Age: Both Correct Ask Pt to Open/Close Eyes and Study Assistant/Release Non-Paretic Hand: Both Correctly Best Gaze (Only Horizontal Eye Movement): Normal Visual Field Testing: No Visual Loss Facial Paresis-Pt to Smile & Close Eyes or Grimace Symmetry: Normal/Symmetrical Motor Function - Right Arm: No Drift-Holds 10 Seconds Motor Function - Left Arm: No Drift-Holds 10 Seconds Motor Function - Right Leg: No Drift-Holds 10 Seconds Motor Function - Left Leg: No Drift-Holds 10 Seconds Limb Ataxia-Must be out of Proportion to Weakness Present: Absent Sensory (Use Pinprick to Test Arms/Legs/Trunk/Face): Normal Best Language (Describe Picture, Name Items): No Aphasia Dysarthria (Read Several Words): Normal Extinction and Inattention: No Abnormality Total Score: 0 Course/Dx - Course Assessment/Plan: Patient is a 73 y/o M with chief complaint of left-sided facial numbness and left arm weakness beginning at 1020 this morning while playing golf. No visual changes, slurred speech, or headache. Initially, the triage nurse called a Clayton Latif since the patient reported left-sided facial numbness and left upper extremity numbness. Initially, my neurological exam is normal, the NIH score is 0, and the GCS is 15. Dr. Gallardo at bedside, and he agrees that the NIH score is 0, and GCS is 15. However, he requested to go to head CT immediately. Head CT impression: negative for an acute interconnected pathology. Patient reports that his symptoms have significantly improved. Blood test results without any significant abnormality except for creatinine 1.19 and glucose of 115. Dr. Gallardo from neurology recommends for the patient to be given Aspirin and Plavix. He also recommends for the patient to be admitted to the hospital services. I discussed my physical exam and findings with Dr. Locke from the hospital services, and she agrees to admit the patient to her services. Patient is hemodynamically stable alert and oriented 3. - Diagnoses Provider Diagnoses: TIA (transient ischemic attack) During the Visit The Following Alert/Code Occurred: Clayton Samuel - called at 1135 - Physician Notifications Discussed Care Of Patient With: Omid Gallardo - neurology Time Discussed With Above Provider: 11:37 Instructed by Provider To: Other - Dr. Gallardo is in the ED evaluating the patient. He recommends no TPA since the patient's symptoms are improving in the ED. He suggests TIA vs. migraine differential. I spoke with Dr. Locke, hospitalist, concerning admission of the patient, and she accepts at 1243. Discharge ED - Sign-Out/Discharge Documenting (check all that apply): Patient Departure - Patient is accepted for admission by Dr. Locke. Patient Received Moderate/Deep Sedation with Procedure: No - Discharge Plan Condition: Stable Disposition: ADMITTED TO [facility] - Billing Disposition and Condition Condition: STABLE Disposition: Admitted to [facility] - Attestation Statements Document Initiated by Prasanth: Yes Documenting Scribe: Celina Gilbert Provider For Whom Prasanth is Documenting (Include Credential): Dr. Nelson Sneed MD Scribe Attestation: I, Celina Gilbert, scribed for Dr. Nelson Sneed MD on 11/19/18 at 1830. Scribe Documentation Reviewed: Yes Provider Attestation: The documentation as recorded by the Celina milligan accurately reflects the service I personally performed and the decisions made by me, Dr. Nelson Sneed MD Status of Scribe Document: Viewed
[2018-11-18] MEDS ORDERED: Aspirin TAB* 325 MG PO ONE (12:03)
[2018-11-18 12:12] LABS: ABS Basophils 0.1 10^3/ul (0-0.2); ABS Eosinophils 0.2 10^3/ul (0-0.6); ABS Lymphocytes 1.8 10^3/ul (1.0-4.8); ABS Monocytes 0.7 10^3/ul (0-0.8); ABS Neutrophils 4.5 10^3/ul (1.5-7.7); Eosinophil % 2.2 %; Hematocrit 41 % (42-52); Lymphocyte % 25.1 %; Mean Corpuscular HGB Conc 35 g/dL (31-36); Mean Corpuscular Hemoglobin 32 pg (27-31); Mean Corpuscular Volume 92 fL (80-94); Mean Platelet Volume 7.8 fL (7.4-10.4); Nucleated Red Blood Cells % 0.1; Platelet Count 216 10^3/uL (150-450); Red Blood Count 4.42 10^6 /uL (4.18-5.48); Red Cell Distribution Width 14 % (10-15); White Blood Count 7.2 10^3/uL (3.5-10.8)
[2018-11-18 12:14] LABS: Activated Partial Thrombo Time 28.8 seconds (26.0-38.0); INR 0.91 (0.82-1.09)
[2018-11-18 12:28] LABS: Albumin 4.1 g/dL (3.2-5.2); Albumin/Globulin Ratio 1.2 (1-3); BUN/Creatinine Ratio 16.8 (8-20); Calcium 8.8 mg/dL (8.6-10.3); EGFR African American 72.7 (>60); EGFR Non-African American 60.1 (>60); Globulin 3.3 g/dL (2-4); HDL Cholesterol 42.8 mg/dL; Potassium 3.6 mmol/L (3.5-5.0); Total Bilirubin 0.5 mg/dL (0.2-1.0); Total Protein 7.4 g/dL (6.4-8.9)
[2018-11-18 12:29] LABS: Troponin I 0.01 ng/mL (<0.04)
[2018-11-18] MEDS ORDERED: Aspirin 81 mg CHEW TAB* 81 MG TAB.CHEW PO ONE (12:43)
[2018-11-18] MEDS ORDERED: Clopidogrel TAB* 75 MG PO ONE (12:43)
[2018-11-18 13:06] LABS: TSH (Thyroid Stimulating Horm) 2.43 mcIU/mL (0.34-5.60)
[2018-11-18] MEDS ORDERED: Acetaminophen TAB* 325 MG PO PRN (13:14)
[2018-11-18] MEDS ORDERED: Ondansetron INJ* 2 MG/ML VIAL IV PRN (13:14)
[2018-11-18] MEDS ORDERED: Butalb/Acetamin/Caff TAB* 1 TAB PO PRN (13:17)
[2018-11-18] MEDS ORDERED: Enoxaparin(*) 40 MG/0.4 ML SYR SUBCUT SCH (14:00)
[2018-11-18 14:08] LABS: Urine Appearance Clear; Urine Bilirubin Negative (Negative); Urine Blood Negative (Negative); Urine Color Yellow; Urine Glucose Negative (Negative); Urine Ketones Negative (Negative); Urine Nitrite Negative (Negative); Urine Protein Negative (Negative); Urine Specific Gravity 1.015 (1.010-1.030); Urine Urobilinogen Negative (Negative)
--- NOTE | 2018-11-18 14:13 | CONS ---
NEUROLOGY CONSULTATION NOTE: DATE OF CONSULT: 11/18/18 CONSULTING PROVIDER: Dr. Sneed, who activated the code rahman for left-sided numbness and tingling sensation. CHIEF COMPLAINT: Left facial and arm numbness. HISTORY OF PRESENT ILLNESS: Mr. Vladimir Rock is a 73-year-old left handed man who presented with sudden onset left numbness and tingling sensation involving the face and arm. The patient stated that he woke up today feeling a slight headache. He took an Excedrin. He has a history of migraines and this was typical pain. At approximately 10:15, he was golfing and had hit the golf ball in the hole. He was content with his game today. However, at 10:20, he noticed the sudden onset left face and arm tingling and numbness sensation. The symptoms gradually traveled down the left arm but within seconds. Then, the symptoms gradually improved in the left arm and it was mostly isolated to the face. He denied any associated weakness. He denied any double vision, blurry vision, current headache, nausea/vomiting, or swallowing difficulty. In the ED, his NIH stroke scale was 0. He did continue to complain of numbness and tingling in the left face, but no sensory differences in the right or left side of the face. Accu-Chek was within normal range. Blood pressure was slightly elevated at 163/82. PAST MEDICAL HISTORY: The patient has a history of TIAs in the past. He has had an MRI every year since 2016. He has a history of migraine headaches. He has a history of asymptomatic left caudate nucleus ischemic stroke. He takes Plavix regularly. He has a history of hypertension and dyslipidemia. He had a viral meningitis in 2017. He states that he has a history of shingles in the past. MEDICATIONS: The patient provided me with a medication list, but the medications have not been updated in the medical record. He is currently taking : 1. Amlodipine 10 mg daily. 2. Metoprolol 25 mg daily. 3. Clopidogrel 75 mg daily. 4. Amitriptyline 30 mg daily. 5. Pravastatin 10 mg daily. 6. Fioricet as needed for headaches. 7. Omeprazole. 8. Magnesium. 9. Glucosamine. ALLERGIES: The patient has a list of allergies that include ATORVASTATIN, CODEINE, LISINOPRIL, SUCRALFATE, DYAZIDE, PANTOPRAZOLE, and walnuts. FAMILY HISTORY: The patient has no family history of stroke or seizures. His mother had a major massive heart attack at age 54. SOCIAL HISTORY: The patient is . He denied any tobacco use. REVIEW OF SYSTEMS: A 14-point review of systems was obtained, otherwise negative except what was mentioned in the HPI. PHYSICAL EXAM: Vitals: Temperature of 98.1, pulse of 67, respiratory rate of 20, oxygen saturation of 96, blood pressure of 163/82. General: Well-nourished , well- developed man in no acute distress. Head: Atraumatic, normocephalic without any obvious abnormality. Neck is supple and symmetrical with no carotid bruits. Conjunctivae/corneas are clear with no evidence of scarring. Cardiovascular: Regular rate and rhythm with normal S1, S2. Respiratory: Clear to auscultation bilaterally. No wheezing or rhonchi. Extremities: Normal range of motion with no cyanosis, hammertoes, or high arches. Psych: Affect is broad. Normal mood. Easy to establish rapport. Neurological Examination: NIH stroke scale of 0. Mental Status: Awake, alert, oriented to person, place, time, and general circumstances. Speech and language including expression, repetition, and comprehension were assessed and found to be normal. Cranial Nerves: Pupils equal, round, reactive to light. Extraocular muscles are intact. Normal sensation in the face bilaterally to light touch and temperature, no facial droop. Tongue is symmetric and midline with no atrophy or fasciculation. Motor Examination: 5/5 strength in the upper and lower extremities bilaterally. Normal bulk and tone throughout. Sensation is intact to light touch, temperature, and vibration to great toes. Reflexes: 1+ throughout the upper and lower extremities, 0 at the ankles. Coordination: Normal [id number]-bu-hzkv and hube-ia-tybr testing bilaterally. No ataxia. Negative Romberg sign. Gait: The patient was able to stand up and transport from the CT table to the stretcher without any assistance. LABORATORY DATA AND IMAGING STUDIES: Labs were not obtained yet. The CT head without contrast was personally reviewed. There is an old small encephalomalacia in the left caudate nucleus consistent with an old infarct. I reviewed the MRIs from as far back as 2015. This finding was present during that time. We did not perform a CTA head and neck since the patient's NIH is 0. However, we plan on doing an MRI and MRA of the head upon admission. ASSESSMENT AND RECOMMENDATION: Mr. 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 The symptoms in the left arm have recovered; however, he still continues to feel some tingling sensation in the left side of the face. The patient did wake up with a migraine headache this morning. Current NIH stroke scale is 0. CT head without contrast showed no evidence of acute intracranial process except for there is an old lacunar stroke in the caudate nucleus on the left. The patient was deemed not a candidate for IV TPA due to low NIH stroke scale. We did not proceed with evaluation for large vessel occlusion at this time given his low NIH stroke scale, and he will have an MRA done with MRI study should be completed today. 1. Sudden onset left face and arm paresthesias - differential diagnosis here includes possible transient ischemic attack as he is still within a 24-hour window, small stroke involving the cortical region on the right hemisphere, possibly also involving the subcortical region in the thalamus, or complex migraine headache given his history of migraine headaches. Please obtain the following: I have ordered an MRI of the brain without contrast, MRA head and neck without contrast, 2-D transthoracic echo with bubble study. Please give the patient 1 dose of aspirin 325 mg p.o. after he passes the dysphagia screen that should be by the bedside nurse. I have discussed this with the bedside nurse who agreed to do the dysphagia screen soon. No need for PT/OT/PROCESS LEAD services since the patient is minimally symptomatic at this time. Depending on the results of the MRI, the patient could potentially be discharged early in the morning or later on today if the studies are completed and his symptoms recover. I do recommend dual- antiplatelet therapy with aspirin 81 mg daily and Plavix 75 mg daily for 30 days. Thereafter, he can discontinue the aspirin and continue the Plavix 75 mg daily. We do need to keep in mind and possibly consider complex migraine as diagnosis given that he has had 3 transient ischemic attacks in the past manifesting similarly and associated with his typical migraine headaches with negative intracranial study since 2016. The patient follows up with Dr. Schmitt. I have spoken to Dr. Schmitt on Wednesday at 1600, who agreed to follow-up with the patient after discharge. 2. Hypertension. His current systolic blood pressure is within appropriate range of 140 to 160. Allow permissive hypertension in the next 24 hours. 3. Dyslipidemia. Continue pravastatin. 4. History of migraine headaches. I educated the patient on minimizing the use of Excedrin and Fioricet. Only use these medications for abortive therapy. I recommend magnesium oxide 400 mg daily as preventative therapy since the patient has on average 3 headaches a week. CRITICAL CARE TIME: 45 minutes, of which more than 50% was spent obtaining history, examining the patient, education, counseling, and discussing the treatment plan as mentioned above. I discussed these recommendations with Dr. Sneed. [id number]/[facility] #: [id number] JOMAR
--- NOTE | 2018-11-18 15:20 | HP ---
CC: Dr. Dayton Stovall; Dr. Omid Gallardo * ADMISSION HISTORY AND PHYSICAL: DATE OF ADMISSION: 11/18/18 PRIMARY CARE PROVIDER: Dr. Dayton Stovall. MY ATTENDING WHILE IN THE HOSPITAL: Dr. Macie Tavarez.* (DICTATED BY YOCASTA BARRIOS) CONSULTING NEUROLOGIST: Dr. Omid Gallardo. CHIEF COMPLAINT: Left-sided numbness x1 hour. HISTORY OF PRESENT ILLNESS: Mr. Rock is a 73-year-old male with past medical history significant for migraines, diabetes mellitus type 2, hyperlipidemia and history of multiple TIAs with evidence of lacunar infarct on previous MRI, who presents to the emergency department after this morning he had approximately 1 hour of left-sided facial and arm numbness without other focal deficits that went away on its own as well as an episode that occurred similarly 2 weeks ago. The patient also has a history of what was diagnosed as TIAs approximately 2 years ago with very similar symptoms of left-sided weakness, though those were more severe at that time. The patient has never had a migrainous aura. The patient did have a headache this morning for which he took Excedrin Migraine. The patient is on amitriptyline and Fioricet for his migraines, but he frequently is taking Fioricet. After he has been placed on the amitriptyline, the patient's blood pressure has been under relatively good control. The patient has been having issues with what sounds to be irritable bowel syndrome with concern for lactose intolerance, but has not had any other recent illnesses or changes to his medications. The patient denies fevers, chills, chest pain, shortness of breath, pain with urination, dizziness on standing, or other weakness. The patient has no nausea, vomiting, visual changes, or photophobia. The patient presented to the emergency department and was called as a code rahman. The patient was evaluated by Dr. Omid Gallardo, who recommended TIA evaluation as the patient was asymptomatic and we were asked to evaluate for admission to the hospital. PAST MEDICAL HISTORY: Migraines, diabetes mellitus type 2, hypertension, reflux , hearing loss, multiple TIAs. PAST SURGICAL HISTORY: Trigger finger release, basal cell carcinoma x2, cataract surgery. MEDICATIONS: 1. Fioricet 1 tab p.o. q.4 hours as needed. 2. Metoprolol succinate 25 mg p.o. daily. 3. Amitriptyline 30 mg p.o. daily. 4. Vitamin D 1000 units p.o. daily. 5. Pravastatin 10 mg p.o. daily. 6. B complex vitamin 1 tab p.o. daily. 7. Omeprazole 20 mg p.o. daily as needed. 8. Benadryl 25 mg p.o. q.6 hours as needed for allergy symptoms. 9. Clopidogrel 75 mg p.o. nightly. 10. Multivitamin. 11. Desire root. 12. Amlodipine 10 mg p.o. daily. 13. Magnesium oxide 500 mg p.o. daily. 14. Glucosamine/chondroitin 1 tab p.o. daily. ALLERGIES: ATORVASTATIN, CODEINE, LISINOPRIL, PANTOPRAZOLE, SUCRALFATE, THIAZIDE DIURETICS, WALNUTS. FAMILY HISTORY: The patient's father of prostate cancer. The patient's mother of heart attack. The patient has a brother with hypertension, 3 brothers who had bypass artery grafting and diabetes mellitus, and a brother who of metastatic liver cancer. SOCIAL HISTORY: The patient smoked for approximately 11 years from 1967 to 1978 while he was in . The patient drinks 1 to 2 alcoholic beverages weekly. Denies any illicit drug use. 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 He is and has 2 children. The patient's surrogate decision maker will be his , Liz Rock. REVIEW OF SYSTEMS: A 14-point review of systems was reviewed and is negative except as above in the HPI. PHYSICAL EXAMINATION GENERAL: The patient is a 73-year-old male, who appears stated age and sitting comfortably in the bed, in no acute distress. VITAL SIGNS: At the time of evaluation, temperature 98.1, pulse rate 64, respiratory rate 20, oxygen saturation 94% on room air, blood pressure 138/80. HEENT: Head: Normocephalic, atraumatic. Sclerae anicteric. No conjunctival injection. Nasal mucosa moist. Oral mucosa moist. No pharyngeal erythema, discharge, or exudate. NECK: Supple, nontender. No lymphadenopathy. No carotid bruits auscultated. No JVD. RESPIRATORY: Clear to auscultation bilaterally. No wheezes, rales, or rhonchi. Good air exchange bilaterally. CARDIAC: Regular rate and rhythm. No clicks, murmurs, gallops, or rubs. Pulses are 2+ in the bilateral dorsalis pedis, posterior tibialis, and radial areas. ABDOMEN: Soft, nontender, nondistended. Bowel sounds present and normoactive in all 4 quadrants. No hepatosplenomegaly. No abdominal bruits auscultated. No hepatojugular reflux. GENITOURINARY: No suprapubic or CVA tenderness. NEURO: Cranial nerves II through XII intact. No focal deficits. Alert and oriented x3. PSYCHIATRIC: Pleasant and cooperative. SKIN: Clean, dry, and intact. No rash. DIAGNOSTIC STUDIES/LAB DATA: White blood cell count 7.2, hemoglobin 14.0, platelet count 216. INR 0.91, APTT 28.8. Sodium 140, potassium 3.6, chloride 109, carbon dioxide 25, anion gap 6, BUN 20, creatinine 1.19, glucose 126, lactic acid 1.3, calcium 8.8. Bilirubin 0.5, AST 16, ALT 14, alkaline phosphatase 88. Troponin I 0.01. Protein 7.4, albumin 4.1, globulin 2.3. Triglycerides 151, cholesterol 182, LDL cholesterol 119, HDL cholesterol 42.9. Vitamin B12 327. Studies: Brain CT read as there is no evidence of intracranial mass or hemorrhage. Right mastoid air cells, unchanged from previous exam. Chest x-ray read as no acute cardiopulmonary disease. Electrocardiogram shows normal sinus rhythm. No ST segment elevation or depression. No hypertrophy or enlargement. Left axis deviation, left atrial enlargement, T-wave inversion in lead III, T-wave flattening in aVF. No other significant findings. ASSESSMENT AND PLAN: Impression: Mr. Rock is a 73-year-old male with past medical history significant for migraines; diabetes mellitus type 2, diet- controlled; as well as history of multiple transient ischemic attacks, all with stereotypical symptoms, who presents to the emergency department with recurrent left-sided numbness and will be admitted to the hospital for transient ischemic attack evaluation. 1. Questionable transient ischemic attack versus migrainous phenomenon. The patient had a headache this morning and has a history of migraines as well as at least 4 episodes now of stereotyped left-sided paresthesias and numbness without any weakness. The patient does have history of a caudate nucleus stroke on his MRI, but has otherwise had 3 MRIs, which did not show any new stroke. The patient will have repeat MRI/MRA of his head as well as a transthoracic echocardiogram and will be monitored on telemetry. The patient was started on aspirin and Plavix for 30 days. The patient should continue to follow with his outpatient neurologist, Dr. Mauricio Schmitt, to discuss the possibility that this may be related to a migrainous phenomenon and for the appropriateness of continued Plavix and aspirin treatment. The patient's lipids are not at goal. The patient has an allergy to STATINS, but tolerates low dose of pravastatin well. The patient's dose of pravastatin will be increased at this time and he should follow up outpatient to assess for the response of his lipids and assess for tolerability of this medication. 2. Hypertension. The patient is currently normotensive. Continue the patient' s home medications. Allow for his blood pressure to be on the upper end of normal given his concern for transient ischemic attack. 3. Diabetes mellitus type 2. Check hemoglobin A1c. The patient is on no medications at home. He will have followup for this outpatient. 4. Hyperlipidemia. As above. 5. Migraines. Continue the patient's Fioricet as needed as well as his amitriptyline for prophylaxis. As above, the patient's symptoms may be related to migrainous phenomenon and this should be followed up more closely with his primary neurologist. 6. Reflux. Continue the patient's omeprazole. The patient is not able to tolerate pantoprazole. Even though omeprazole decreases the effectiveness of his Plavix, the appropriateness and necessity of this medication should be discussed with his outpatient provider. 7. DVT prophylaxis: Lovenox subcu. 8. FEN: The patient will have a heart-healthy diet without caffeine. Fluids are not indicated. 9. Disposition: The patient is admitted to observation to the hospital. 10. Code status: The patient would like to be a full code. The patient's surrogate decision maker will be his . TIME SPENT: Approximately 60 minutes was spent on the admission of this patient , 30 of which was spent [id number] with the patient obtaining history and physical and discussing treatment plan. This plan was discussed with my attending, Dr. Macie Tavarez, and she is in agreement. YOCASTA BARRIOS [id number]/[facility] #: [id number] MTDRod
[2018-11-18 18:17] VITALS: BP 144/73
[2018-11-18] MEDS ORDERED: Amitriptyline TAB* 10 MG PO SCH (21:00)
--- NOTE | 2018-11-19 02:08 | DS ---
CC: Dr. Dayton Stovall * DISCHARGE SUMMARY: DATE OF ADMISSION: 11/18/18 DATE OF DISCHARGE: 11/18/18 PRIMARY CARE PROVIDER: Dr. Dayton Stovall. MY ATTENDING WHILE IN THE HOSPITAL: Dr. Shawn Roberto.* (DICTATED BY YOCASTA BARRIOS) PRIMARY DISCHARGE DIAGNOSES: 1. Left-sided numbness and paresthesias. 2. Complex migraine versus transient ischemic attack. SECONDARY DISCHARGE DIAGNOSES: 1. Hypertension. 2. Hyperlipidemia. 3. Diabetes mellitus type 2. 4. Hearing aid. 5. Migraine. 6. History of multiple presumed transient ischemic attacks. STUDIES DONE WHILE IN THE HOSPITAL: Brain CT from 11/18/18 read as no evidence of intracranial mass or hemorrhage. Fluid in the right mastoid air cells unchanged. Chest x-ray read as no evidence of acute cardiopulmonary disease. EKG shows normal sinus rhythm, no ST segment elevation or depression, T-wave inversion in lead III to a flattening in aVF. There are no significant changes compared to previous exam. Brain MRI from 11/18/18 read as no acute intracranial pathology, old lacunar infarct in the head of his left caudate, old pontine infarcts in the cerebral hemispheres, mild chronic small vessel ischemic changes likely moderate cerebral volume loss. 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 MEDICATIONS AT DISCHARGE: 1. Vitamin D 1000 units p.o. daily. 2. Fioricet 1 tab p.o. q.6 hours as needed. 3. Magnesium oxide 500 mg p.o. daily. 4. Clopidogrel 75 mg p.o. nightly. 5. Metoprolol succinate 25 mg p.o. daily. 6. Pravastatin 20 mg p.o. daily. 7. Glucosamine chondroitin 1 tab p.o. daily. 8. Vitamin B 1 tab p.o. daily. 9. Amlodipine 10 mg p.o. daily. 10. Amitriptyline 30 mg p.o. at bedtime. 11. Omeprazole 20 mg p.o. daily. 12. Multivitamin 1 tab p.o. daily. 13. Tylenol 650 mg p.o. q.6 hours as needed. 14. Aspirin 81 mg p.o. daily. 15. Pravastatin 20 mg p.o. daily. New medications on discharge: 1. Tylenol. 2. Aspirin. 3. Pravastatin. Medications discontinued at discharge: 1. Pravastatin 10 mg p.o. daily. HOSPITAL COURSE: This is a brief summary of the patient's presentation. For more details, please see the history and physical from this author on 11/18/18. In brief, the patient is a 73-year-old male with past medical history significant for the above, who presented to the emergency department after this morning he woke up early this morning, had a headache, took Excedrin Migraine for it and it went away. He went back to bed, woke up, was preparing his breakfast when he had sudden onset left-sided facial and arm numbness with paresthesias. The patient had a very similar episode that lasted significant less time 2 weeks ago and very similar symptoms approximately 2 years ago that were more severe. By the time, the patient was seen in the emergency department , his symptoms had subsided. The patient was not given tPA. The patient was seen in consultation by Dr. Omid Gallardo, who recommended evaluation for TIA, but believes due to the serotype nature of these episodes, this could be related to a complex migrainous phenomenon. The patient had brain imaging read as above showing no new pathology. The patient's evaluation was completed in the evening, he felt back to his baseline and was anxious for discharge and was stable enough for discharge on 11/18/18. DISCHARGE PLAN BY PROBLEM: 1. Left-sided paresthesias, transient ischemic attack versus complex migraine. The patient will be treated for TIA at this point with clopidogrel and aspirin combination therapy for 1 month and then returning to the Plavix monotherapy as he was previously on. The patient should discuss the use of omeprazole with his primary care provider, this was decreased the efficacy of Plavix, though the patient does have a PANTOPRAZOLE allergy, H2 inhibitor could be considered. The patient discussed the need for a transthoracic echocardiogram outpatient; however, he did have a transesophageal echocardiogram, which showed no PFO and the utility of a repeat echocardiogram may be minimal at this point. The patient should follow up with his neurologist, Dr. Schmitt to discuss the need for further preventive or abortive therapy for his migraines and discussed whether or not this represents a migrainous phenomenon. The patient should return to the hospital for repeat symptoms. 2. Hypertension. Continue the patient's outpatient medications. The patient was mildly hypertensive while in the hospital. 3. Hyperlipidemia. The patient's statin was increased from 10 mg of pravastatin daily to 20 mg daily after discussion with the patient. The patient 's LDL cholesterol was 119 while in the hospital, this is lower than it was previously, but is not at a goal we would like for his events if they are TIAs. 4. Migraines. Continue the patient's amitriptyline, magnesium and Fioricet as well as Excedrin Migraine for abortive therapy. 5. Diabetes mellitus type 2. The patient should follow up this as outpatient. The patient is on no medications. Hemoglobin A1c was not obtained while in the hospital, the most recent was 6.8 earlier this year. 6. Gastroesophageal reflux. Continue the patient's omeprazole at this time. The patient should discuss these medications outpatient with his primary care provider. DISPOSITION: Home. CONDITION: Stable. TIME SPENT: Approximately 45 minutes was spent on the discharge of this patient , 30 of which was spent [id number] with the patient obtaining history and physical and discussing treatment plan. YOCASTA BARRIOS [id number]/[facility] #: [id number] JOMAR
[2018-11-19] MEDS ORDERED: Cholecalciferol TAB* 1000 UNITS PO SCH (09:00)
[2018-11-19] MEDS ORDERED: Metoprolol Succinate XL TAB* 25 MG PO SCH (09:00)
[2018-11-19] MEDS ORDERED: Vitamin B Complex TAB PO SCH (09:00)
[2018-11-19] MEDS ORDERED: amLODIPine TAB* 5 MG PO SCH (09:00)
[2018-11-19] MEDS ORDERED: CMCS Pravastatin (NF) 20 MG TAB PO SCH (09:00)
[2018-11-19] MEDS ORDERED: Multivitamins/Minerals TAB PO SCH (09:00)
[2018-11-19] MEDS ORDERED: Magnesium Oxide TAB* 400 MG PO SCH (09:00)
[2018-11-19] MEDS ORDERED: Aspirin EC TAB* 81 MG TAB.EC PO SCH (09:00)
[2018-11-19] MEDS ORDERED: Clopidogrel TAB* 75 MG PO SCH (21:00)
== END 2018-11-18 20:10 | disposition home or self-care (01) ==
LOC: ED 11:34 → MEDTELE 13:16
PROVIDERS: ADMIT Internal Medicine; ATTEND Internal Medicine
DX: R20.0 Anesthesia of skin (principal); R20.2 Paresthesia of skin; G43.909 Migraine, unspecified, not intractable, without status migrainosus; I10 Essential (primary) hypertension; E78.5 Hyperlipidemia, unspecified; E11.9 Type 2 diabetes mellitus without complications; Z46.1 Encounter for fitting and adjustment of hearing aid; Z86.73 Personal history of transient ischemic attack (TIA), and cerebral infarction without residual deficits; Z79.899 Other long term (current) drug therapy; K21.9 Gastro-esophageal reflux disease without esophagitis; Z87.891 Personal history of nicotine dependence; E78.00 Pure hypercholesterolemia, unspecified; Z85.828 Personal history of other malignant neoplasm of skin
CPT/HCPCS: 36415; 70450; 70544; 70547; 70551; 71045; 80053; 80061; 81003; 82607; 83605; 84443; 84484; 85025; 85610; 85730; 93005; 99285; A9270-GY; G0378